=== PATIENT | female | born 1955 | race Caucasian/White ===

== ENCOUNTER → 2019-12-17 14:58 | Outpatient (BNVA) | payer MEDICARE, MEDICAID, SELFPAY | PROVIDERS: Family Provider Family Medicine; PCP Family Medicine; Visit Provider Internal Medicine Rheumatology | DX: M34.0 Progressive systemic sclerosis (principal); Z79.899 Other long term (current) drug therapy; B99.9 Unspecified infectious disease; A04.8 Other specified bacterial intestinal infections; M06.4 Inflammatory polyarthropathy; I27.20 Pulmonary hypertension, unspecified; R76.0 Raised antibody titer; J44.9 Chronic obstructive pulmonary disease, unspecified; F17.210 Nicotine dependence, cigarettes, uncomplicated; R19.7 Diarrhea, unspecified; Z79.52 Long term (current) use of systemic steroids; Z71.89 Other specified counseling | CPT/HCPCS: 36415; 80076; 82565; 85025; 85651; 86140; 99214 ==

== ENCOUNTER → 2019-12-17 16:39 | Outpatient (BNVA) | payer MEDICARE, MEDICAID, SELFPAY | PROVIDERS: Family Provider Family Medicine; PCP Family Medicine; Visit Provider Internal Medicine Rheumatology | DX: Z79.899 Other long term (current) drug therapy (principal); B99.9 Unspecified infectious disease; A04.8 Other specified bacterial intestinal infections; R19.7 Diarrhea, unspecified; M06.4 Inflammatory polyarthropathy; M34.0 Progressive systemic sclerosis; I27.20 Pulmonary hypertension, unspecified; R76.0 Raised antibody titer; Z71.89 Other specified counseling | CPT/HCPCS: 85025 ==

== ENCOUNTER 2020-02-13 15:14 | Outpatient (CLI) | payer MEDICARE, MEDICAID, SELFPAY ==
--- NOTE | 2020-02-13 15:21 | USCV_ITS ---
Kathy Ordonez Age: 64 Gender: F : 1955 Exam Date: 02/13/2020 15:45 Ordering Phys: Aby Miranda MD Technologist: Janey Cole Exam Location: [facility] [place] Indication: SWELLING HISTORY: Lower extremity pain. PROCEDURES: Venous duplex imaging was performed in bilateral lower extremities. The following venous structures were evaluated: common femoral vein, profunda vein, proximal portion of the greater saphenous vein, superficial femoral vein, and the popliteal vein. In addition, the posterior tibial and peroneal trunk were evaluated. Serial compression, augmentation maneuvers, and spectral Doppler flow evaluation were performed. FINDINGS: Normal 2-D Doppler and augmentation and compressibility throughout the lower extremity venous structures. Additional imaging through the proximal calf veins also reveals no thrombus. Limited evaluation of the greater saphenous vein is patent with no thrombus.. CONCLUSIONS No evidence of deep vein thrombosis in the above mentioned identifiable veins Dr Nicolette Moody MD [facility] (Electronically Signed) Final Date: 13 February 2020 17:41 S
== END 2020-02-13 15:15 | disposition home or self-care (01) ==
LOC: RAD 15:18
PROVIDERS: Family Provider Family Medicine; PCP Family Medicine; Visit Provider Family Medicine
DX: R60.0 Localized edema (principal)
CPT/HCPCS: 93970

== ENCOUNTER → 2020-03-05 10:18 | Outpatient (BNVA) | payer MEDICARE, MEDICAID, SELFPAY | PROVIDERS: Family Provider Family Medicine; PCP Family Medicine; Visit Provider Internal Medicine Rheumatology | DX: Z79.899 Other long term (current) drug therapy (principal) | CPT/HCPCS: 36415; 80076; 82565; 85025; 85651; 86140 ==

== ENCOUNTER → 2020-03-12 09:46 | Outpatient (BNVA) | payer MEDICARE, MEDICAID, SELFPAY | PROVIDERS: Family Provider Family Medicine; PCP Family Medicine; Visit Provider Internal Medicine Rheumatology | DX: M34.0 Progressive systemic sclerosis (principal); M06.4 Inflammatory polyarthropathy; M31.6 Other giant cell arteritis; I27.20 Pulmonary hypertension, unspecified; R76.0 Raised antibody titer; Z79.52 Long term (current) use of systemic steroids; F17.210 Nicotine dependence, cigarettes, uncomplicated; I73.00 Raynaud's syndrome without gangrene; Z79.899 Other long term (current) drug therapy; M79.7 Fibromyalgia | CPT/HCPCS: 99214 ==

== ENCOUNTER 2020-04-28 11:38 | Outpatient (CLI) | payer MEDICARE, MEDICAID, SELFPAY ==
--- NOTE | 2020-04-28 11:43 | USCV_ITS ---
Kathy Ordonez Age: 64 Gender: F : 1955 Exam Date: 04/28/2020 11:53 Ordering Phys: Aby Miranda MD Technologist: Exam Location: [facility] [place]_ Indication: PAD RIGHT LEFT Pressure (mmHg) Waveform Pressure (mmHg) Waveform 123.00 Above Knee 132.00 122.00 Below Knee 128.00 118.00 TAXATION ACCOUNTANT 119.00 117.00 DPA 123.00 1.02 Ankle/Brachial Index 1.07 Pre-Exercise Toe Pressure 98.00 77.00 0.67 Pre-Exercise Toe/Brachial Index 0.85 FINDINGS Normal resting ABIs bilaterally Slightly diminished resting TBI on the right side Normal resting TBI on the left side PVR waveforms showing loss of dicrotic notch bilaterally CONCLUSIONS 1. Features of mild peripheral artery disease on the right side 2. No significant arterial obstruction on the left side Dr Nicolette Moody MD [facility] (Electronically Signed) Final Date: 29 April 2020 19:06 S
== END 2020-04-28 11:39 | disposition home or self-care (01) ==
LOC: RAD 11:42
PROVIDERS: Family Provider Family Medicine; PCP Family Medicine; Visit Provider Family Medicine
DX: I73.9 Peripheral vascular disease, unspecified (principal); M79.605 Pain in left leg; M79.604 Pain in right leg
CPT/HCPCS: 93923

== ENCOUNTER 2020-05-21 09:33 | Outpatient (CLI) | payer MEDICARE, MEDICAID, SELFPAY ==
--- NOTE | 2020-05-21 09:30 | USCV_ITS ---
Kathy Ordonez Age: 64 Gender: F : 1955 Exam Date: 05/21/2020 09:35 Ordering Phys: Tony Rodriguez MD (Andy) ([email or web address]) Technologist: Anjana Quinteros [place] [facility] [place]: HISTORY: Lower extremity swelling. PROCEDURES: Bilateral duplex Venous Insufficiency study of the Deep and Superficial systems was carried out according to normal protocol with the patient in supine positon for deep system and dependent position for the superficial system. FINDINGS: There is no evidence of bilateral deep vein thrombosis. No evidence of superficial thrombosis in the bilateral saphenous system. Reflux is demonstrated in the deep venous system at the level of the RIGHT and LEFT popliteal veins. No venous reflux noted in the bilateral greater saphenous vein. No venous reflux noted in the RIGHT small saphenous vein. Venous reflux is demonstrated in the LEFT small saphenous vein with a spectral Doppler display of greater than 500 mlsec at the level of the proximal calf. CONCLUSIONS No evidence of DVT in the above-mentioned identifiable veins. Significant venous reflux of greater than 1000 ms were noted in the popliteal veins bilaterally. Significant venous reflux of greater than 500 (2800) ms were noted at the proximal segment of the small saphenous vein on the left side. The venous segment was found to be greater than 1 cm from the surface. The diameter of this venous segment was 0.26 cm. The venous dimensions, depth from the surface and reflux times are as mentioned above Dr Nicolette Moody MD [facility] (Electronically Signed) Final Date: 22 May 2020 14:41 S
== END 2020-05-21 09:34 | disposition home or self-care (01) ==
LOC: RAD 09:34
PROVIDERS: PCP Family Medicine; Visit Provider Thoracic Surgery (Cardiothoracic Vascular Surgery)
DX: M79.89 Other specified soft tissue disorders (principal)
CPT/HCPCS: 93970

== ENCOUNTER → 2020-06-16 09:54 | Outpatient (BNVA) | payer MEDICARE, MEDICAID, SELFPAY | PROVIDERS: PCP Nurse Practitioner Family; Visit Provider Internal Medicine | DX: Z11.59 Encounter for screening for other viral diseases (principal) | CPT/HCPCS: 87635 ==

== ENCOUNTER 2020-06-17 08:26 | Day surgery (SDC) | payer MEDICARE, MEDICAID, SELFPAY ==
[2020-06-17 08:42] VITALS: BMI 35.4
[2020-06-17 08:53] LABS: Glucose Point of Care 84 mg/dL (70-110)
--- NOTE | 2020-06-17 08:53 | ANES.PREANE2 ---
Pre-Anesthetic Assessment Pre-Anesthetic Assessment: Height/Weight: Height 1.6 m Weight 90.718 kg Preop Diagnosis: stenotis (esophageal) Proposed Procedure: Operation Date: 06/17/20 10:00 Proposed Procedures p EGD Dilation w Balloon 39286 R13.10(Not Applicable) - Luciano Santana MD Familial anesthetic complications: None Was Beta Lucy taken within 24 hours: N/A Last intake: Intake Last Liquid Date 06/16/20 Last Liquid Time 23:59 Last Solid Date 06/16/20 Last Solid Time 16:00 Social: Social History: No alcohol and No tobacco Exam: Pre-Anes Outpt Exam: alert, oriented x 3, clear to auscultation bilaterally and regular rate & rhythm Airway: Cervical ROM: WNL MP: 4 Dentition: Other (multiple missing teeth) Additional comments: small mouht opening Pulmonary: Pulmonary: COPD (2 l NC prn) and Sleep apnea (CPAP) Comments: pulm HTN CV/HEM: CV/HEM: HTN Metabolic: Metabolic: DM, Morbid obesity and Thyroid Musc/skel: Comments: scleroderma (affects throat, lungs, heart) Anesthetic Plan: ASA status: 3 Anesthesia: MAC Risk of > 500 ml blood loss (7ml/kg in children): No PFSH Anesthesia PFSH: Medical History COPD (chronic obstructive pulmonary disease) Diabetes mellitus Fibromyalgia GERD (gastroesophageal reflux disease) Hypothyroidism Pulmonary hypertension Scleroderma Systemic sclerosis with limited cutaneous involvement Surgical History H/O section H/O esophagogastroduodenoscopy History of hysterectomy Status post colonoscopy Family History Other Arthritis Diabetes Heart disease Denies family history of Rheumatoid arthritis Lupus Anesthesia complication Bleeding disorder Social History Smoking and tobacco status: former smoker Quit status (tobacco): has quit using tobacco Year quit tobacco: 2020 - 2PPD x 10 Years Alcohol intake: never Lives independently: Yes Household members: friend(s) Marital status: / Current occupational status: disabled History of recent travel: No Current gender identity: Female Data Anesthesia Cardiac Studies: No Data to Display
[2020-06-17] MEDS: sodium chloride 0.9% 1,000 ML 30 ML IV (09:00)
--- NOTE | 2020-06-17 09:18 | W.PM.OPSUD ---
Surgery/Procedure H&P Update DATE OF PROCEDURE: June 17, 2020 DATE H&P PERFORMED: 05/30/20 H&P UPDATE INFORMATION: I have reviewed H&P completed within last 30 days, I have examined patient prior to procedure and No changes to prior documentation PREOP DIAGNOSIS: stenotis (esophageal) PLANNED PROCEDURE: Operation Date: 06/17/20 10:00 Proposed Procedures p EGD Dilation w Balloon 29193 R13.10(Not Applicable) - Luciano Santana MD
--- NOTE | 2020-06-17 09:39 | SUR.OPER ---
0939 Balloon dilation with 10, 11, 12 and then 12, 13.5, and 15 mm dilator.
[2020-06-17 09:51] VITALS: BP 97/67; PULSE 71; RESP 16; TEMP 36.2; O2SAT 92
[2020-06-17 10:03] VITALS: BP 102/78; PULSE 75; RESP 16; O2SAT 94
--- NOTE | 2020-06-17 10:25 | ANE.PACU2 ---
Inpatient post-anesthesia follow up: Airway intact: Yes Vital signs: Temperature 97.1 F Pulse Rate 75 Respiratory Rate 16 Blood Pressure 102/78 Pulse Oximetry 94 Oxygen Delivery Me thod Nasal Cannula Oxygen Flow Rate 2.0 Fraction of Inspir ed Oxygen Hydration adequate: Yes Nausea and vomiting: No Pain level: 1 Mental status: Baseline
== END 2020-06-17 10:15 | disposition home or self-care (01) ==
PROVIDERS: PCP Nurse Practitioner Family; Visit Provider Surgery
DX: R13.10 Dysphagia, unspecified (principal); K21.0 Gastro-esophageal reflux disease with esophagitis; J44.9 Chronic obstructive pulmonary disease, unspecified; I27.20 Pulmonary hypertension, unspecified; G47.30 Sleep apnea, unspecified; I10 Essential (primary) hypertension; E11.9 Type 2 diabetes mellitus without complications; E66.01 Morbid (severe) obesity due to excess calories; M79.7 Fibromyalgia; E03.9 Hypothyroidism, unspecified; M34.89 Other systemic sclerosis; Z87.891 Personal history of nicotine dependence
CPT/HCPCS: 12345; 36416; 43249; 82962; 88305; J2704; J7030

== ENCOUNTER 2020-06-18 13:48 | Outpatient (CLI) | payer MEDICARE, MEDICAID, SELFPAY ==
--- NOTE | 2020-06-18 14:43 | PFTS_ITS ---
Date of Study:06/18/20 Date of Dictation: MECHANICS: Forced vital capacity (FVC) is reduced. Forced expiratory volume in one second (FEV1) is reduced. FEV1/FVC is normal. FLOW VOLUME LOOP: Narrow with mild scooping. LUNG VOLUMES: Total lung capacity (TLC) is normal. Residual volume (RV) is normal. DIFFUSING CAPACITY FOR CARBON MONOXIDE: Mild reduced. INTERPRETATION: The pulmonary function tests are consistent with nonspecific ventilatory limitation. The spirometry is consistent with moderate restriction however the total lung capacity is normal. This could represent a combined obstructive and restrictive defect. Lung volumes are normal. Gas exchange (DLCO) is mildly reduced. MTDD
[2020-06-18 14:47] VITALS: BP 98/63
== END 2020-06-18 13:49 | disposition home or self-care (01) ==
LOC: RT 13:49
PROVIDERS: PCP Nurse Practitioner Family; Visit Provider Internal Medicine Pulmonary Disease
DX: I27.20 Pulmonary hypertension, unspecified (principal); J44.9 Chronic obstructive pulmonary disease, unspecified; M34.9 Systemic sclerosis, unspecified
CPT/HCPCS: 94060; 94726; 94729; 94770; J7611

== ENCOUNTER 2020-07-08 09:46 | Outpatient (CLI) | payer MEDICARE, MEDICAID, SELFPAY ==
--- NOTE | 2020-07-08 09:50 | XR_ITS ---
WS: [id number] EXAM: Chest: PA and lateral DATE OF EXAMINATION: 07/08/2020, 1045 hours COMPARISON: Chest x-ray from 05/19/2017 HISTORY: Patient is 64 years old with interstitial lung disease. FINDINGS: The heart size is considered slightly enlarged. The mediastinal contours are normal. There is marke d interval increase in interstitial infiltrate/interstitial edema since the prior examination. Katiuska B lines are demonstrated bilaterally. No area of consolidation is seen. No effusion, or pneumothorax . Bone density is decreased. XR/XR chest 2V* [id number] IMPRESSION: Marked interval development of interstitial infiltrate and/or interstitial ginger a. With the history of interstitial lung disease most likely represents fibrosi s. Slight cardiomegaly.
--- NOTE | 2020-07-08 10:00 | NM_ITS ---
WS: [id number] NUCLEAR MEDICINE VENTILATION/PERFUSION LUNG SCAN HISTORY: Pulmonary hypertension. Sclerosis systemic. COMPARISON: 07/08/2020 TECHNIQUE: Ventilation: 32.5 mCi of Technetium 99 DTPA aerosol inhaled. Perfusion: 5.0 mCi of technetium 99m MAA IV. Mild deposition of central isotope on the ventilatory portion. Otherwise mild heterogeneity of the ve ntilation. Much better perfusion bilaterally. Perfusion examination is essentially normal. No wedge-s haped defects. No asymmetry. NM/NM pul vent and perfus* [id number] IMPRESSION: Low probability PE. Perfusion examination is essentially normal.
== END 2020-07-08 09:47 | disposition home or self-care (01) ==
LOC: NM 09:49
PROVIDERS: PCP Nurse Practitioner Family; Visit Provider Internal Medicine Pulmonary Disease
DX: J84.89 Other specified interstitial pulmonary diseases (principal); M35.9 Systemic involvement of connective tissue, unspecified; G47.33 Obstructive sleep apnea (adult) (pediatric); Z99.89 Dependence on other enabling machines and devices; M34.9 Systemic sclerosis, unspecified; I27.20 Pulmonary hypertension, unspecified; J44.9 Chronic obstructive pulmonary disease, unspecified
CPT/HCPCS: 71046; 78014; A9540; A9567

== ENCOUNTER → 2020-07-16 09:54 | Outpatient (BNVA) | payer MEDICARE, MEDICAID, SELFPAY | PROVIDERS: PCP Nurse Practitioner Family; Visit Provider Internal Medicine Rheumatology | DX: M34.0 Progressive systemic sclerosis (principal); J84.89 Other specified interstitial pulmonary diseases; M35.9 Systemic involvement of connective tissue, unspecified; Z87.891 Personal history of nicotine dependence; Z79.899 Other long term (current) drug therapy; I27.20 Pulmonary hypertension, unspecified; R76.0 Raised antibody titer; M06.4 Inflammatory polyarthropathy; M31.6 Other giant cell arteritis; K52.9 Noninfective gastroenteritis and colitis, unspecified | CPT/HCPCS: 99215 ==

== ENCOUNTER 2020-08-19 10:49 | Outpatient (CLI) | payer MEDICARE, MEDICAID, SELFPAY ==
--- NOTE | 2020-08-19 11:00 | CT_ITS ---
WS: [id number] CT CHEST high resolution. HISTORY: to assess progression on ILD in systemic sclerosis patient TECHNIQUE: Contiguous 5 mm axial imaging performed on the thorax. High resolution inspiration and exp iration supine imaging and prone inspiration sequences submitted. All CT scans at [facility] use at least one of these dose optimization techniques: automated exposure control; mA and/or kV a djustment per patient size (includes targeted exams where dose is matched to clinical indication); or iterative reconstruction. CONTRAST: None DLP: 290.94 mGy.cm COMPARISON: 09/06/2019 Lungs and central airway: Mild persistent groundglass attenuation. With expiration the groundglass op acifications become more prominent. There is no evidence for air trapping. There is no significant re ticular opacifications or honeycombing. There is mild thickening and nodularity along the pleural and subpleural surfaces. Greatest involving the LEFT mid fissure which has increased. No progression or new honeycombing. Mild thickening of the central bronchovascular structures. There is some very mild subpleural thickening and nodularity. Pleura: No effusions. Heart and pericardium: Heart is slightly enlarged. No pericardial thickening. Mediastinum and morena: Minimal increase in size of the pulmonary artery from 3.5 to 3.8 cm in diameter . The RIGHT and LEFT main pulmonary arteries are also prominent. Dilated debris-filled esophagus at t his again identified most significant below the gin. Lymphadenopathy would be difficult to exclude on this examination. For further evaluation of adenopathy CT with contrast should be performed. Dila mar pulmonary arteries making evaluation for lymph nodes difficult. Vessels: Normal size aorta with mild atherosclerosis. Chest wall and lower neck: No soft tissue masses. Upper abdomen: Negative. Osseous structures: No destructive process. CT/CT chest wo con [id number] IMPRESSION: 1. Mild progression of the minimal groundglass attenuation in the small bowel pleural and subpleural nodules as described above. Most significant changes dustin ng the LEFT major fissure. 2. No honeycombing. Mild persistent diffuse groundglass opacifications. 3. Continued esophageal dilatation. 4. Mild progression of the pulmonary hypertension and pulmonary artery enlarge ment.
== END 2020-08-19 10:50 | disposition home or self-care (01) ==
LOC: RAD 10:50
PROVIDERS: PCP Nurse Practitioner Family; Visit Provider Internal Medicine Pulmonary Disease
DX: J84.89 Other specified interstitial pulmonary diseases (principal); M35.9 Systemic involvement of connective tissue, unspecified; M34.0 Progressive systemic sclerosis; K22.8 Other specified diseases of esophagus; I27.20 Pulmonary hypertension, unspecified
CPT/HCPCS: 71250

== ENCOUNTER 2020-09-11 11:35 | Outpatient (CLI) | payer MEDICARE, MEDICAID, SELFPAY ==
--- NOTE | 2020-09-11 11:42 | XR_ITS ---
WS: [id number] CHEST 2 VIEWS HISTORY: shortness of breath COMPARISON: 07/08/2020 Lungs: Mild pulmonary hyperinflation. Mild thickening of the interstitium and mild pulmonary congesti on. No significant change since the prior study. Cardiac size: Moderately enlarged cardiac silhouette. Mediastinum/Aorta: Normal mediastinum. Bones: Normal. XR/XR chest 2V* [id number] IMPRESSION: 1. Increased interstitial thickening is likely due to mild pulmonary edema. Rios perimposed interstitial pneumonitis not excluded. 2. Moderate cardiomegaly.
== END 2020-09-11 11:36 | disposition home or self-care (01) ==
LOC: RAD 11:40
PROVIDERS: PCP Nurse Practitioner Family; Visit Provider Internal Medicine Pulmonary Disease
DX: R06.02 Shortness of breath (principal); I51.7 Cardiomegaly
CPT/HCPCS: 71046

== ENCOUNTER 2020-11-05 10:33 | Outpatient (CLI) | payer MEDICARE, MEDICAID, SELFPAY ==
--- NOTE | 2020-11-05 13:30 | USCV_ITS ---
Kathy Ordonez Age: 65 Gender: F : 1955 Exam Date: 11/05/2020 11:00 Ordering Phys: Trevor Mora MD Technologist: Anjana Quinteros Exam Location: [facility] – [place] Indication: assess rv function BP: 106 / 62 HR: 96 Rhythm: Sinus Technical Quality: Adequate MEASUREMENTS (Male / Female) Normal Values 2D ECHO LV Diastolic Diameter PLAX 4.4 cm 4.2 - 5.9 / 3.9 - 5.3 cm LV Systolic Diameter PLAX 4.1 cm IVS Diastolic Thickness 1.2 cm 0.6 - 1.0 / 0.6 - 0.9 cm IVS Systolic Thickness 1.5 cm LVPW Diastolic Thickness 1.3 cm 0.6 - 1.0 / 0.6 - 0.9 cm LVPW Systolic Thickness 1.5 cm RV Chamber Size 3.8 cm LVOT Diameter 2.0 cm LV Ejection Fraction 2D Teich 18.0 % LV Ejection Fraction MOD 2C 55.4 % LV Ejection Fraction 2C AL 59.0 % LA Diameter 3.6 cm LA Width 3.1 cm LA Height 4.0 cm RA Width 2.5 cm RA Height 3.9 cm Aorta at Sinotubular Diameter 2.4 cm M-MODE LV Diastolic Diameter MM 4.1 cm 4.2 - 5.9 / 3.9 - 5.3 cm LV Systolic Diameter MM 2.3 cm LV Ejection Fraction MM Teich 75.4 % IVS Diastolic Thickness MM 1.4 cm 0.6 - 1.0 / 0.6 - 0.9 cm IVS Systolic Thickness MM 1.4 cm LVPW Diastolic Thickness MM 1.3 cm 0.6 - 1.0 / 0.6 - 0.9 cm LVPW Systolic Thickness MM 1.8 cm Aortic Annulus Diameter 2.8 cm LA Ao Ratio MM 1.4 MV E Point Septal Separation 0.6 cm DOPPLER AV Peak Velocity 136.0 cm/s LVOT Peak Velocity 107.0 cm/s AV Area Cont Eq vti 2.5 cm squared AV Area Cont Eq pk 2.4 cm squared MV Area PHT 3.7 cm squared Mitral E to A Ratio 0.5 MV E' Velocity 48.0 cm/s Mitral E to MV E' Ratio 6.7 Mitral E to LV E' Lateral Ratio 6.9 Mitral E to LV E' Septal Ratio 6.5 TR Peak Velocity 339.5 cm/s TR Peak Gradient 46.1 mmHg TR Mean Velocity 238.2 cm/s TR Mean Gradient 27.9 mmHg TR Velocity Time Integral 102.2 cm Right Atrial Pressure 3.0 mmHg Pulmonary Artery Systolic Pressu 49.1 mmHg PV Peak Velocity 61.0 cm/s RV Acceleration Time 0.1 s RV Ejection Time 0.3 s RV AcT/ET 0.3 FINDINGS Left Ventricle Mildly increased left ventricular cavity size. Normal left ventricular systolic function. Left ventricular ejection fraction is estimated at 55 %. Grade I/IV diastolic dysfunction (abnormal relaxation filling pattern), normal to mildly elevated filling pressures. Right Ventricle Moderately increased right ventricular size. Moderate pulmonary hypertension, RVSP 49.1 mmHg. Right Atrium The right atrium is normal in size. Left Atrium The left atrium is normal in size. Mitral Valve Mildly thickened mitral valve. No mitral valve stenosis. Mild mitral valve regurgitation. Aortic Valve Mild aortic valve calcification. No aortic valve stenosis. No aortic valve regurgitation. Tricuspid Valve Mild tricuspid valve regurgitation. Pulmonic Valve Structurally normal pulmonic valve without significant stenosis. There is no pulmonic regurgitation. Pericardium Normal pericardium without effusion. Aorta Normal ascending aorta dimension. CONCLUSIONS 1-Mildly increased left ventricular cavity size. Normal left ventricular systolic function. Left ventricular ejection fraction is estimated at 55 %. Grade I/IV diastolic dysfunction (abnormal relaxation filling pattern), normal to mildly elevated filling pressures. 2-Moderately increased right ventricular size. Moderate pulmonary hypertension, RVSP 49.1 mmHg. 3-Mildly thickened mitral valve. No mitral valve stenosis. Mild mitral valve regurgitation. 4-Mild aortic valve calcification. No aortic valve stenosis. No aortic valve regurgitation. 5-Mild tricuspid valve regurgitation. 6-There is no pericardial effusion. 7-When compared to the prior echocardiogram dated June 11, 2019 right ventricle ejection fraction has moderately reduced while right ventricle size has moderately increased now. Joshua Rendon MD (Electronically Signed) Final Date: 05 November 2020 19:15 S
== END 2020-11-05 10:34 | disposition home or self-care (01) ==
LOC: RAD 10:36
PROVIDERS: PCP Nurse Practitioner Family; Visit Provider Internal Medicine Pulmonary Disease
DX: J84.89 Other specified interstitial pulmonary diseases (principal); I27.20 Pulmonary hypertension, unspecified; I08.3 Combined rheumatic disorders of mitral, aortic and tricuspid valves
CPT/HCPCS: 93306

== ENCOUNTER → 2021-04-14 13:53 | Outpatient (BNVA) | payer MEDICARE, MEDICAID, SELFPAY | PROVIDERS: PCP Nurse Practitioner Family; Visit Provider Internal Medicine Rheumatology | DX: M34.0 Progressive systemic sclerosis (principal); Z79.899 Other long term (current) drug therapy; J84.89 Other specified interstitial pulmonary diseases; I27.20 Pulmonary hypertension, unspecified; R76.0 Raised antibody titer; M79.7 Fibromyalgia; M48.061 Spinal stenosis, lumbar region without neurogenic claudication; M51.16 Intervertebral disc disorders with radiculopathy, lumbar region; Z87.891 Personal history of nicotine dependence | CPT/HCPCS: 99214 ==

== ENCOUNTER 2021-07-24 11:45 | Outpatient (CLI) | payer MEDICARE, MEDICAID, SELFPAY ==
--- NOTE | 2021-07-24 11:55 | MM_ITS ---
WS: [id number] BILATERAL SCREENING DIGITAL MAMMOGRAM WITH CAD HISTORY: SCREENING COMPARISON: 06/21/2019 and 06/19/2017 Bilateral CC and MLO views submitted. Computer aided detection analyzed. Breast composition: There are scattered areas of fibroglandular density. No suspicious masses, microc alcifications or architectural distortion. MM/[place] [id number] IMPRESSION: BI-RADS: 1-Negative FOLLOW UP: 1 Year Follow-up
== END 2021-07-24 11:46 | disposition home or self-care (01) ==
LOC: RADSHAW 11:48
PROVIDERS: PCP Nurse Practitioner Family; Visit Provider Nurse Practitioner Family
DX: Z12.31 Encounter for screening mammogram for malignant neoplasm of breast (principal)
CPT/HCPCS: 77067

== ENCOUNTER → 2021-07-29 13:27 | Outpatient (BNVA) | payer MEDICARE, MEDICAID, SELFPAY | PROVIDERS: PCP Nurse Practitioner Family; Visit Provider Internal Medicine Rheumatology | DX: M34.0 Progressive systemic sclerosis (principal); I27.20 Pulmonary hypertension, unspecified; Z79.899 Other long term (current) drug therapy; Z79.52 Long term (current) use of systemic steroids; J84.89 Other specified interstitial pulmonary diseases; M35.9 Systemic involvement of connective tissue, unspecified; R76.0 Raised antibody titer; M48.061 Spinal stenosis, lumbar region without neurogenic claudication; M54.32 Sciatica, left side; M79.7 Fibromyalgia; F41.8 Other specified anxiety disorders; Z71.89 Other specified counseling; Z87.891 Personal history of nicotine dependence | CPT/HCPCS: 99214 ==

== ENCOUNTER 2021-08-31 12:54 | Outpatient (CLI) | payer MEDICARE, MEDICAID, SELFPAY ==
--- NOTE | 2021-08-31 11:45 | CT_ITS ---
WS: [id number] CT CHEST HIGH-RESOLUTION TECHNIQUE: Noncontrast CT chest. High-resolution inspiratory expiratory and prone imaging CLINICAL INFORMATION: J84.89 - Other specified interstitial pulmonary diseases COMPARISON: CT chest August 19, 2020 and DLP: 1861.[address] scans at [facility] use at least one of these dose optimization techniques: automated e xposure control; mA and/or kV adjustment per patient size (includes targeted exams where dose is matc hed to clinical indication); or iterative reconstruction. FINDINGS: Previously described groundglass opacities essentially resolved since the prior examination s. Small amount of atelectasis in the right lower lobe. Stable bronchovascular thickening. No subpleu ral honeycombing. No significant air trapping on expiration imaging. No significant reticular opaciti es or subpleural honeycombing. Stable mild pleural and subpleural thickening and nodularity more prom inent involving the left fissure unchanged. No mediastinal or hilar lymphadenopathy. Cardiomegaly. Coronary calcification. Stable thoracic esophageal dilatation. Adrenal glands are wolf l. Fatty atrophy of the pancreas. Cardiomegaly. Coronary calcification. No axillary lymphadenopathy. Hypertrophic changes thoracic spine. Stable central pulmonary arterial enlargement can be seen with p ulmonary arterial hypertension. CT/CT chest wo con [id number] IMPRESSION: 1. Previously seen described groundglass opacities have resolved. 2. No reticular opacities or subpleural honeycombing. 3. Small amount of pleural and subpleural nodularity and thickening is stable compared to previous most prominent along left fissure. 4. Stable persistent thoracic esophageal dilatation 5. Stable pulmonary arterial enlargement which can be seen with pulmonary augustina rial hypertension.
== END 2021-08-31 12:55 | disposition home or self-care (01) ==
PROVIDERS: PCP Nurse Practitioner Family; Visit Provider Internal Medicine Pulmonary Disease
DX: J84.89 Other specified interstitial pulmonary diseases (principal); M35.9 Systemic involvement of connective tissue, unspecified
CPT/HCPCS: 71250

== ENCOUNTER → 2021-09-07 12:35 | Outpatient (BNVA) | payer MEDICARE, MEDICAID, SELFPAY | PROVIDERS: PCP Nurse Practitioner Family; Visit Provider Internal Medicine Pulmonary Disease | DX: Z20.822 Contact with and (suspected) exposure to COVID-19 (principal); J44.9 Chronic obstructive pulmonary disease, unspecified; J84.89 Other specified interstitial pulmonary diseases; M35.9 Systemic involvement of connective tissue, unspecified | CPT/HCPCS: 87635 ==

== ENCOUNTER 2021-09-11 12:44 | Outpatient (CLI) | payer MEDICARE, MEDICAID, SELFPAY ==
--- NOTE | 2021-09-11 13:30 | PFTS_ITS ---
Date of Study:09/11/21 Date of Dictation: MECHANICS: Forced vital capacity (FVC) is reduced. Forced expiratory volume in one second (FEV1) is reduced. FEV1/FVC is normal. FLOW VOLUME LOOP: Mild scooping. LUNG VOLUMES: Total lung capacity (TLC) is normal. Residual volume (RV) is increased. DIFFUSING CAPACITY FOR CARBON MONOXIDE: Moderately reduced. INTERPRETATION: The postbronchodilator spirometry is consistent with moderate restriction. There is no significant postbronchodilator response. Lung volumes are consistent with air trapping. The constellation of spirometry and lung volume measurement is consistent with nonspecific ventilatory limitation. The patient likely has both obstructive and restrictive ventilatory defects. Gas exchange (DLCO) is moderately reduced. MTDD
== END 2021-09-11 12:45 | disposition home or self-care (01) ==
LOC: RT 12:45
PROVIDERS: PCP Nurse Practitioner Family; Visit Provider Internal Medicine Pulmonary Disease
DX: Z87.891 Personal history of nicotine dependence (principal); J44.9 Chronic obstructive pulmonary disease, unspecified
CPT/HCPCS: 94060; 94618; 94726; 94729; J7611

== ENCOUNTER 2021-11-17 11:14 | Inpatient (IN) | payer MEDICARE, MEDICAID, SELFPAY ==
[2021-11-17] VITALS (10 sets, daily range): BP systolic 88–99; BP diastolic 53–55; PULSE 71–121; RESP 16–26; TEMP 36.3–36.8; O2SAT 91–97; BMI 30.9
--- NOTE | 2021-11-17 11:23 | XR_ITS ---
WS: [id number] Portable AP semierect chest, 11/17/2021 Clinical Data: hypoxia, resp distress Comparison: Two-view chest, 09/11/2020. Findings: Bibasilar pulmonary opacities are present consistent with acute pneumonia. No nodules, mass es or effusions are seen. The heart is normal. The pulmonary vascularity is not remarkable. No pneumo thorax is seen. The aortic arch shows mild tortuosity. XR/XR chest 1V portable [id number] Impression: 1. Bibasilar pulmonary opacities which could represent acute pneumonia. 2. Atherosclerosis.
--- NOTE | 2021-11-17 11:24 | ECG_ITS ---
[facility] Test Date: 2021-11-17 Pat Name: Kathy Ordonez Department: Room: 256 Gender: Female Education Trainer: : 1955 Requested By: Narinder Villa Order Number: [id number] Esperanza MD: Jena Boykin M.D. Measurements Intervals [place] Rate: 123 P: 74 IN: 177 QRS: 139 QRSD: 103 T: 31 QT: 360 QTc: 517 Interpretive Statements SINUS TACHYCARDIA WITH FREQUENT SUPRAVENTRICULAR PREMATURE COMPLEXES INCOMPLETE RIGHT BUNDLE BRANCH BLOCK RIGHT VENTRICULAR HYPERTROPHY MINIMAL ST DEPRESSION [0.025+ mV ST DEPRESSION] Compared to ECG 11/30/2016 18:18:33 Incomplete right bundle-branch block now present Right ventricular hypertrophy now present Atrial abnormality now present ST (T wave) deviation now present Sinus rhythm no longer present Sinus arrhythmia no longer present Myocardial infarct finding no longer present Electronically Signed On 11-17-2021 21:46:52 HOOP COILER by Jena Boykin M.D. [id number]
--- NOTE | 2021-11-17 11:25 | ED_ITS ---
HPI - SOB/Dyspnea General: Chief Complaint: COVID symptoms Stated Complaint: POST COVID, RESP DISTRESS Time Seen by Provider: 11/17/21 11:23 History of Present Illness: HPI Narrative: Ms. Ordonez is a 71-year-old lady with significant past medical history of p ulmonary hypertension, systemic sclerosis, COPD with chronic hypoxic respiratory failure, history of tobaccoism who presents to the emergency department due to shortness of breath and respiratory distress. Patient apparently had Covid and quarantine ended 3 days ago. She has been requiring more oxygen than baseline including using her CPAP, which she previously only wore at night, all the time. Over the past 2 days she has been lethargic, not got out of bed, and had decreased p.o. intake. This morning EMS was called and found the patient to be hypoxemic on room air in the mid 70s. She was altered and had cool extremities with pallor and bluing of the fingernail beds. She would not follow commands. They placed the patient on BiPAP, 1 L fluid, and gave Solu-Medrol. The patient's mental status is improved with BiPAP and improved oxygenation though the patient still remains hypoxemic. History is otherwise limited by acuity of condition. Given BiPAP the patient has difficulty speaking however she does mentate and follow commands at this point. Course of symptoms have been wors ening. Severe in intensity. No other specific changes in health, exacerbating, relieving factors identified. Pertinent past history: COPD and other Onset (ago): day(s) Context: recent illness Timing: constant and progressively worsening Severity: severe Exacerbating factors: exertion Relieving factors: oxygen (Previously, now has not) Known history of: COPD and other Associated symptoms: Reports no associated symptoms Treatment prior to arrival: oxygen, NIPPV and other Review of Systems General: Reports: ROS unobtainable due to medical condition PFS ED PFS: Medical History (Updated 11/17/21 @ 15:13 by Rickey Cuellar MD) Chronic diarrhea COPD (chronic obstructive pulmonary disease) Diabetes mellitus Fibromyalgia GERD (gastroesophageal reflux disease) Hypothyroidism Pulmonary hypertension Scleroderma Systemic sclerosis with limited cutaneous involvement Surgical History H/O section H/O esophagogastroduodenoscopy (~06/17/20) With balloon dilation History of hysterectomy Status post colonoscopy Family History Other Arthritis Diabetes Heart disease Denies family history of Rheumatoid arthritis Lupus Anesthesia complication Bleeding disorder Social History Quit status (tobacco): has quit using tobacco Year quit tobacco: 2019 Former quit date comment: Hx of 2PPD x 10 Years Second hand smoke exposure: No Smoking risk assessment/counseling performed?: No Alcohol intake: never Counseling given: No Counseling given: No Lives independently: Yes Household members: friend(s) Marital status: / Current occupational status: disabled Pets and animals: Yes History of recent travel: No Current gender identity: Female Physical Exam Const: COMMON NORMALS: alert GENERAL APPEARANCE: cooperative and ill appearing ORIENTATION/CONSCIOUSNESS: Yes awake HENMT: COMMON NORMALS: normocephalic and atraumatic HEAD & SCALP: normocephalic and atraumatic THROAT: posterior oropharynx normal (Dry mucous membranes) Eye: COMMON NORMALS: conjunctivae normal CONJUNCTIVA: Yes conjunctivae normal SCLERA: sclerae normal Neck/C-Spine: COMMON NORMALS: supple GENERAL: Yes trachea midline Resp: EFFORT & INSPECTION: Yes tachypneic and Yes respiratory distress AUSCULTATION: diminished lung sounds bilateral and diffuse Cardio: COMMON NORMALS: regular rate and regular rhythm RATE: regular rate RHYTHM: regular rhythm GI: COMMON NORMALS: Soft to palpation PALPATION: Yes Soft to palpation and No Tenderness to palpation present (GI) PERCUSSION: normal to percussion Extremity: NARRATIVE EXTREMITY EXAM: No significant peripheral edema GENERAL: Yes normal exam except as noted and No edema Neuro: COMMON NORMALS: moves all extremities SENSORIUM/ORIENTATION: Yes alert and No Orientation impaired Psych: COMMON NORMALS: mental status grossly normal and Normal thought process present THOUGHT PROCESS: Normal thought process present Course ED course: - Patient was seen and evaluated by me at bedside - Patient placed on cardiac monitors, IV access obtained - Initial evaluation notable for ill appearance, prehospital BiPAP in place. Respiratory distress. nonfocal neurologic exam with some alteration in mental status - Antibiotics given, RT treatment for BiPAP and DuoNeb. - Labs notable for mild leukocytosis, likely hemoconcentration. Metabolic panel with evidence of intravascular dehydration, sodium 129, chloride 94, mild decrease in bicarb. Renal function is preserved. Initial troponin 33 with pending 2-hour troponin at time of admission. BNP mildly elevated, CRP elevated with negative procalcitonin. - Imaging notable for bibasilar opacities concerning for pneumonia. Antibiotics were ordered after review of x-ray prior to laboratory return. CT head pending. - Upon serial reexamination after treatment the patient was improved with continued improvement in mental status - Based on patient history, evaluation, labs, and imaging as interpreted the most likely cause of the patient's condition is pneumonia with acute on chronic hypoxic respiratory failure leading to mental status change - The results of ED evaluation were discussed with the patient including plan for admission due to requirement for level of care not available if discharged to prevent significant worsening/deterioration. - Admitting service was contacted and Dr Cuellar with hospitalist agreed to admit the patient. After discussion with Dr. Cuellar I will order a CTA for evaluation of pulmonary embolism as the patient is reportedly out of quarantine. For Covid and therefore illness was sometime ago. - Patient was admitted without further deterioration or significant events. Note: Click bubbles or prepopulated kelly in note writing are used for assistance with data collection and billing and are inherently more limited than narrative and other text portions of this note. Please use narrative for additional clinical history and defer to narrative/free test for any case of contradictory information. If information appears in only free text or click bubble it should be considered present or absent as reported. Please contact note com writer for clarifications of clinical information or contradictory information. MDM is a brief summary, contradictory or erroneous seeming information should be clarified and full note should be reviewed. Vital Signs: Vital signs: Vital Signs Temperature 96.9 F L 11/19/21 20:00 Pulse Rate 92 11/20/21 09:35 Respiratory Rate 18 11/20/21 09:30 Blood Pressure 103/67 11/20/21 07:30 Pulse Oximetry 80 L 11/20/21 09:31 MDM - SOB/Dyspnea MDM Narrative Medical decision making narrative: 66-year-old lady with history of interstitial lung disease, pulmonary hypertension presenting with respiratory distress. Patient placed on BiPAP. Patient required BiPAP throughout stay but did have some improvement in overall clinical condition with treatment. Patient admitted for further management given severity of respiratory distress and requirement for BiPAP. Medical Records Attestation: I reviewed the patient's medical records. Lab Data Attestation: I reviewed the patient's lab results. Result diagrams: 11/19/21 05:54 11/19/21 10:32 Labs: Radiology Impressions Chest X-Ray 11/17/21 11:23 Impression: 1. Bibasilar pulmonary opacities which could represent acute pneumonia. 2. Atherosclerosis. Head CT 11/17/21 12:19 IMPRESSION: 1. No acute intracranial hemorrhage or edema. 2. Mild atrophy and chronic ischemic changes. New since 11/10/2012. 3. RIGHT frontal lobe calcifications are stable. 4. Air-fluid levels in the RIGHT maxillary and sphenoid sinuses bilaterally. Chest CTA 11/17/21 14:24 IMPRESSION: 1. No central pulmonary embolism through the segmental branches. Highly likely there may be tiny filling defects in the subsegmental branches in the lower lung kelly. 2. Marked pulmonary artery enlargement with RIGHT heart strain. 3. Moderate opacification and groundglass attenuation from Covid 19. These findings are new since 08/31/2021. 4. Reactive mediastinal and hilar adenopathy. 5. Enlarged dilated fluid-filled esophagus with moderate size hiatal hernia. Laboratory Results WBC 10.6 10^3/uL (4.0-10.0) H 11/17/21 12:25 RBC 5.63 10^6/uL (4.1-5.3) H 11/17/21 12:25 Hgb 15.2 g/dL (11.5-15.3) 11/17/21 12:25 Hct 48.0 % (37.0-47.0) H 11/17/21 12:25 MCV 85.3 fl (81-99) 11/17/21 12:25 MCH 27.0 pg (28.0-34.0) L 11/17/21 12:25 MCHC 31.7 g/dL (30.0-36.0) 11/17/21 12:25 RDW 15.2 % (12.1-15.1) H 11/17/21 12:25 Plt Count 139 10^3/cmm (130-400) 11/17/21 12:25 MPV 10.5 fL (7.4-10.4) H 11/17/21 12:25 Neut % (Auto) 94.1 % 11/17/21 12:25 Lymph % (Auto) 3.5 % 11/17/21 12:25 [place] % (Auto) 1.5 % 11/17/21 12:25 Eos % (Auto) 0.0 % 11/17/21 12:25 Baso % (Auto) 0.2 % 11/17/21 12:25 Neut # (Auto) 10.02 10^3/uL (1.8-7.7) H 11/17/21 12:25 Lymph # (Auto) 0.4 10^3/uL (0.8-4.8) L 11/17/21 12:25 [place] # (Auto) 0.2 10^3/uL (0.2-0.9) 11/17/21 12:25 Eos # (Auto) 0.0 10^3/uL (0.0-0.8) 11/17/21 12:25 Baso # (Auto) 0.0 10^3/uL (0.0-0.1) 11/17/21 12:25 Nucleated RBC % (auto) 0 % 11/17/21 12:25 Nucleated RBCs # 0.0 /100WBC 11/17/21 12:25 Specimen Type Arterial 11/17/21 11:48 Sample Site Radial, right 11/17/21 11:48 ABG pH 7.53 (7.35-7.45) H 11/17/21 11:48 ABG pCO2 29.6 mmHg (35-45) L 11/17/21 11:48 ABG pO2 67.8 mmHg (80.0-100.0) L 11/17/21 11:48 ABG HCO3 24.4 mmol/L (22-26) 11/17/21 11:48 ABG Base Excess 2.5 mmol/L (-2.0-2.0) H 11/17/21 11:48 Evangelist Test Pos 11/17/21 11:48 Hematocrit 43.7 % (37-47) 11/17/21 11:48 O2 Delivery Device Bipap 11/17/21 11:48 FiO2 50.0 % 11/17/21 11:48 Sheet Metal Supervisor ID Abdi 11/17/21 11:48 Sodium 129 mmol/L (136-145) L 11/17/21 13:07 Potassium 3.9 mmol/L (3.5-5.1) 11/17/21 13:07 Chloride 94 mmol/L (98-107) L 11/17/21 13:07 Carbon Dioxide 21 mmol/L (22-29) L 11/17/21 13:07 Anion Gap 17.9 (5-19) 11/17/21 13:07 BUN 18 mg/dL (8-23) 11/17/21 13:07 Creatinine 0.6 mg/dL (0.5-0.9) 11/17/21 13:07 GFR Calculation 100.6 mL/min (90-130) 11/17/21 13:07 Glucose 98 mg/dL (65-115) 11/17/21 13:07 Calculated Osmolality 270 mOsm/kg (285-295) L 11/17/21 13:07 Lactic Acid 1.4 mmol/L (0.5-2.2) 11/17/21 13:07 Calcium 7.2 mg/dL (8.5-10.5) L 11/17/21 13:07 Total Bilirubin 0.8 mg/dL (0.15-1.2) 11/17/21 13:07 AST 93 U/L (0-32) H 11/17/21 13:07 ALT 30 U/L (0-33) 11/17/21 13:07 Alkaline Phosphatase 62 IU/L (35-105) 11/17/21 13:07 Troponin T Baseline 33 ng/L (0-10) H 11/17/21 13:07 Troponin T 120 Minute 31.00 ng/L (0-10) H 11/17/21 14:24 Delta Troponin T -2.00 ABS# (0-10) L 11/17/21 14:24 C-Reactive Protein 99.7 mg/L (0.0-4.9) H 11/17/21 13:07 NT-Pro-B Natriuret Pep 4229 pg/mL (0-125) H 11/17/21 13:07 Total Protein 5.1 g/dL (6.6-8.7) L 11/17/21 13:07 Albumin 2.8 g/dL (3.5-5.2) L 11/17/21 13:07 Globulin 2.3 g/dL (1.3-4.6) 11/17/21 13:07 Procalcitonin 0.12 ng/mL (0-0.5) 11/17/21 13:07 Influenza Type A Ag Negative (Negative) 11/17/21 11:49 Influenza Type B Ag Negative (Negative) 11/17/21 11:49 EKG Data EKG 1: Attestation: I personally reviewed and interpreted this EKG as follows: EKG Interpretation Date: 11/17/21 EKG interpretation time: 12:05 Interpretation: Twelve-lead EKG showed an irregular rhythm at a rate of 123. CA interval 177, QRS duration 103, QTc 517 Right axis deviation. Interpretation: Sinus rhythm. Tachycardia. Ectopic beats. Critical Care Time Critical Care Time: Critical Care Time: Yes Total Critical Care Time: 35 Attestation: Due to a high probability of clinically significant, possibly life threatening deterioration, the patient required my highest level of attention and preparedness to intervene emergently and I personally spent this critical care time directly and personally managing the patient. This critical care time included obtaining a history; examining the patient; pulse oximetry; ordering and review of laboratory and imaging studies; arranging urgent treatment with development of a management plan; evaluation of patient's response to treatment; frequent reassessment; and, discussions with other providers as applicable. It was exclusive of separately billable procedures. Discharge Plan Discharge Patient Disposition: Admitted As Inpatient Admit Provider: Rickey Cuellar Clinical Impression: Acute and chronic respiratory failure, Pulmonary hypertension, Interstitial lung disease due to connective tissue disease, Pneumonia Condition: Stable Coding Level of Care Code ED Rn Chemical Dependency for Chg Fwd Exam Comprehensive
--- NOTE | 2021-11-17 11:41 | PC.NURSE ---
pt placed on continuous spo2, nibp, and cm.
[2021-11-17 11:59] LABS: ABG PCO2 29.6 mmHg (35-45); ABG PH Result 7.53 (7.35-7.45); Arterial Blood Gas Hematocrit 43.7 % (37-47); Base Excess ABG 2.5 mmol/L (-2.0-2.0); Blood Gas Allen Test Pos; Blood Gas Sample Site Radial, right; Blood Gas Sample Type Arterial; HCO3 ABG 24.4 mmol/L (22-26); Oxygen Device BIPAP; PO2 ABG 67.8 mmHg (80.0-100.0)
--- NOTE | 2021-11-17 11:59 | PC.NURSE ---
ATTEMPTED 3 IV'S NO SUCCESS.
[2021-11-17 12:12] LABS: Influenza A by IFA Negative (Negative); Influenza B by IFA Negative (Negative)
[2021-11-17] MEDS: cefTRIAXone 1,000 MG in sodium chloride 0.9% (plus) 50 ML 100 MG IV (12:18)
--- NOTE | 2021-11-17 12:19 | CT_ITS ---
WS: [id number] CT HEAD NONCONTRAST HISTORY: AMS TECHNIQUE: Contiguous axial imaging performed through the brain in 2.5 mm imaging. Bone and soft tiss ue windows. Sagittal and coronal reformats reviewed. All CT scans at [facility] use at least one of these dose optimization techniques: automated exposure control; mA and/or kV adjustment per pa tient size (includes targeted exams where dose is matched to clinical indication); or iterative recon struction. DLP: 936.35 mGy.cm COMPARISON: 11/10/2012 No acute intracranial hemorrhage, midline shift or mass effect. Mild atrophy and mild chronic microvascular ischemic disease. These changes are new since 2012. Agai n noted are well-rounded RIGHT frontal lobe with the largest measuring 5.0 mm. Ventricles: Normal size with no hydrocephalus. No inferior displacement of cerebellar tonsils. Paranasal sinuses: Air-fluid level in the RIGHT maxillary sinus and also in the sphenoid sinuses bila terally. Mastoid air cells: Well pneumatized. Calvarium and scalp: Hyperostosis frontalis interna. CT/CT head wo con* [id number] IMPRESSION: 1. No acute intracranial hemorrhage or edema. 2. Mild atrophy and chronic ischemic changes. New since 11/10/2012. 3. RIGHT frontal lobe calcifications are stable. 4. Air-fluid levels in the RIGHT maxillary and sphenoid sinuses bilaterally.
[2021-11-17] MEDS: doxycycline 100 MG in sodium chloride 0.9% (plus) 100 ML IV (12:22)
[2021-11-17] MEDS: ipratropium-albuterol 3 mL Neb INHALATION ×2 (12:23→21:24)
[2021-11-17 12:36] LABS: Basophils % 0.2 %; Hemoglobin 15.2 g/dL (11.5-15.3); Lymphocytes # 0.4 10^3/uL (0.8-4.8); Lymphocytes % 3.5 %; Mean Corpuscular HGB Conc 31.7 g/dL (30.0-36.0); Mean Corpuscular Volume 85.3 fl (81-99); Mean Platelet Volume 10.5 fL (7.4-10.4); Monocytes # 0.2 10^3/uL (0.2-0.9); Monocytes % 1.5 %; Neutrophils # 10.02 10^3/uL (1.8-7.7); Neutrophils % 94.1 %; Nucleated Red Blood Cells % 0 %; Platelet Count 139 10^3/cmm (130-400); Red Blood Count 5.63 10^6/uL (4.1-5.3); Red Cell Distribution Width 15.2 % (12.1-15.1); White Blood Count 10.6 10^3/uL (4.0-10.0)
[2021-11-17 13:39] LABS: Lactic Sepsis W/Reflex 1.4 mmol/L (0.5-2.2)
[2021-11-17 13:42] LABS: Troponin(5th) Baseline 33 ng/L (0-10)
[2021-11-17 13:48] LABS: NT Pro B Type Natriuretic Pept 4229 pg/mL (0-125); Procalcitonin 0.12 ng/mL (0-0.5)
[2021-11-17 14:00] LABS: Alanine Aminotransferase 30 U/L (0-33); Albumin Level 2.8 g/dL (3.5-5.2); Alkaline Phosphatase 62 IU/L (35-105); Anion Gap 17.9 (5-19); Aspartate Amino Transferase 93 U/L (0-32); Blood Urea Nitrogen 18 mg/dL (8-23); C Reactive Protein 99.7 mg/L (0.0-4.9); Calcium 7.2 mg/dL (8.5-10.5); Carbon Dioxide 21 mmol/L (22-29); Chloride 94 mmol/L (98-107); Globulin 2.3 g/dL (1.3-4.6); Glomerular Filtration Rate 100.6 mL/min (90-130); Glucose 98 mg/dL (65-115); Osmolality Calculated 270 mOsm/kg (285-295); Potassium 3.9 mmol/L (3.5-5.1); Sodium 129 mmol/L (136-145); Total Bilirubin 0.8 mg/dL (0.15-1.2); Total Protein 5.1 g/dL (6.6-8.7)
[2021-11-17] MEDS: sodium chloride 0.9% 1,000 ML 999 ML IV (14:17)
--- NOTE | 2021-11-17 14:24 | CT_ITS ---
WS: [id number] CT CHEST ANGIOGRAPHY WITH REFORMATS HISTORY: respiratory failure TECHNIQUE: Contiguous axial images are obtained through the chest during arterial injection of intrav enous contrast. Images are reconstructed to evaluate the pulmonary arteries. MIP imaging also reviewe d. All CT scans at [facility] use at least one of these dose optimization techniques: automat ed exposure control; mA and/or kV adjustment per patient size (includes targeted exams where dose is matched to clinical indication); or iterative reconstruction. CONTRAST: Omnipaque 350; 70 mL IV. DLP: 561.08 mGy.cm COMPARISON: 08/31/2021 Very good opacification of the pulmonary arteries through the lobar and some of the segmental branche s. Beyond the segmental branches the opacification is becoming limited due to the adjacent airspace d isease. There are very small filling defects within the subsegmental branches of the lower lung field s bilaterally. Highly suspicious for distal emboli. Pulmonary artery is markedly enlarged measuring 3 .6 cm in diameter. Mild atherosclerosis of aorta. There is mild RIGHT heart strain. Similar findings were noted on the prior study. Intraventricular septum is being flattened and displaced in a clockwis e manner. RIGHT heart chambers are enlarged. Scattered hazy opacifications with groundglass attenuation, atelectasis and more focal increasing con solidation. Predominantly within the periphery of the lower lung kelly. No pneumothorax. No pleural effusion. There is moderate mediastinal and hilar adenopathy. Largest lymph nodes along the RIGHT hil ar region measuring up to 15 mm in diameter. The esophagus is ectatic and fluid-filled and extends to the RIGHT of the spine. Patient has a moderate size hiatal hernia. No abnormality noted within the upper abdomen. Thoracic spondylosis. CT/CT angio chest PE protcl [id number] IMPRESSION: 1. No central pulmonary embolism through the segmental branches. Highly likely there may be tiny filling defects in the subsegmental branches in the lower paul ng kelly. 2. Marked pulmonary artery enlargement with RIGHT heart strain. 3. Moderate opacification and groundglass attenuation from Covid 19. These fin dings are new since 08/31/2021. 4. Reactive mediastinal and hilar adenopathy. 5. Enlarged dilated fluid-filled esophagus with moderate size hiatal hernia.
--- NOTE | 2021-11-17 15:01 | PM.HP ---
Providers/Chief Complaint Primary Care Provider: Consuelo Peacock Chief Complaint: POST COVID, RESP DISTRESS History of Present Illness Kathy Ordonez is a 66 year old female who presents to the ER for shortness of breath for the past 2 days. PMH is significant for scleroderma. She states that she tested positive for COVID at a pharmacy in [place], [place]. She endorses having a mostly dry cough but denies fevers, chills, abdominal pain, chest pain, diarrhea, or constipation. She is not vaccinated and has never had COVID before. She wears 2L O2 at home and CPAP at night. She lives at home with a friend. No blood in sputum. Denies any blood in stool or black or tarry stool. Relates she wears 2 L of oxygen all the time for her scleroderma. I called [facility] she indicated she got the test. They reports she had a positive rapid test November 05 at [facility] in [place]. They confirmed this for me over the phone. Review of Systems General: Reports: 10 or more systems reviewed and unremarkable except in HPI and below Const: Denies: fever(s) or chills Eyes: Denies: change in vision ENMT: Denies: throat pain Card: Denies: chest pain Resp: Reports: dyspnea GI: Denies: abdominal pain : Denies: flank pain Musc: Denies: neck pain Skin/Breast: Denies: rash Neuro: Denies: headache(s) Psych: Denies: anxiety Endo: Denies: polyuria Dutch/Lymph: Denies: easy bruising All/Imm: Denies: urticaria Medications/Allergies Home Medications Medication Instructions Recorded Confirmed Last Taken Type aripiprazole 5 mg tablet (Abilify) 5 mg PO BEDTIME 12/13/19 11/17/21 06/16/20 History citalopram 40 mg tablet (Celexa) 40 mg PO DAILY 12/13/19 11/17/21 06/16/20 History dexlansoprazole 60 mg 60 mg PO DAILY 12/13/19 11/17/21 06/16/20 History capsule,biphase delayed release (Dexilant) estradiol 0.5 mg tablet (Estrace) 0.5 mg PO DAILY 12/13/19 11/17/21 06/16/20 History hydrocodone 10 mg-acetaminophen 1 - 2 tab PO Q4H PRN MDD 6 tabs 12/13/19 11/17/21 06/16/20 History 325 mg tablet levothyroxine 112 mcg tablet 112 mcg PO DAILY 12/13/19 11/17/21 06/16/20 History (Synthroid) albuterol sulfate 90 mcg/actuation 2 puff INHALATION Q6H PRN #8.5 g 03/24/21 11/17/21 Unknown Rx aerosol inhaler (Ventolin HFA) umeclidinium 62.5 mcg/actuation 1 inh INHALATION DAILY #30 ea 03/24/21 11/17/21 Unknown Rx blister powder for inhalation (Incruse Ellipta) gabapentin 300 mg capsule 300 mg PO BID 30 Days #60 cap 07/29/21 11/17/21 Unknown Rx hydroxychloroquine 200 mg tablet 200 mg PO BID 30 Days #60 tab 07/29/21 11/17/21 Unknown Rx (Plaquenil) mycophenolate mofetil 500 mg See Rx Instructions PO BID #90 tab 07/29/21 11/17/21 Unknown Rx tablet (CellCept) prednisone 5 mg tablet 5 mg PO DAILY #90 tab 07/29/21 11/17/21 Unknown Rx amlodipine 10 mg tablet 10 mg PO DAILY 11/17/21 11/17/21 Unknown History ergocalciferol (vitamin D2) 1,250 See Rx Instructions .ROUTE .COMPLEX 11/17/21 11/17/21 Unknown History mcg (50,000 unit) capsule furosemide 20 mg tablet (Lasix) 20 mg PO DAILY 11/17/21 11/17/21 Unknown History guaifenesin 600 mg tablet, 600 mg PO BID 11/17/21 11/17/21 Unknown History extended release 12 hr (Mucinex) ibuprofen 800 mg tablet 800 mg PO TID PRN 11/17/21 11/17/21 Unknown History metformin 500 mg tablet,extended 500 mg PO DAILY 11/17/21 11/17/21 Unknown History release 24 hr ondansetron 4 mg disintegrating 4 mg PO TID PRN 11/17/21 11/17/21 Unknown History tablet potassium chloride 20 mEq 20 meq PO DAILY 11/17/21 11/17/21 Unknown History tablet,extended release rosuvastatin 10 mg tablet 10 mg PO BEDTIME 11/17/21 11/17/21 Unknown History selexipag 200 mcg tablet (Uptravi) 200 mcg PO BID 11/17/21 11/17/21 Unknown History tolterodine 4 mg capsule,extended 4 mg PO DAILY 11/17/21 11/17/21 Unknown History release 24 hr trazodone 100 mg tablet 200 mg PO BEDTIME 11/17/21 11/17/21 Unknown History Allergies Allergy/AdvReac Type Severity Reaction Status Date / Time bupropion [From Wellbutrin] Allergy Unknown Verified 11/17/21 14:37 pregabalin [From Lyrica] Allergy UNKNOWN Verified 11/17/21 14:37 venlafaxine [From Effexor] Allergy UNKNOWN Verified 11/17/21 14:37 PFSH Acute PFSH: Medical History (Updated 11/17/21 @ 15:13 by Rickey Cuellar MD) Chronic diarrhea COPD (chronic obstructive pulmonary disease) Diabetes mellitus Fibromyalgia GERD (gastroesophageal reflux disease) Hypothyroidism Pulmonary hypertension Scleroderma Systemic sclerosis with limited cutaneous involvement Surgical History H/O section H/O esophagogastroduodenoscopy (~06/17/20) With balloon dilation History of hysterectomy Status post colonoscopy Family History Other Arthritis Diabetes Heart disease Denies family history of Rheumatoid arthritis Lupus Anesthesia complication Bleeding disorder Social History Quit status (tobacco): has quit using tobacco Year quit tobacco: 2019 Former quit date comment: Hx of 2PPD x 10 Years Second hand smoke exposure: No Smoking risk assessment/counseling performed?: No Alcohol intake: never Counseling given: No Counseling given: No Lives independently: Yes Household members: friend(s) Marital status: / Current occupational status: disabled Pets and animals: Yes History of recent travel: No Current gender identity: Female Vitals/I&O/Wt Last Vital Signs Temp 98.3 F 11/17/21 11:27 Pulse 121 H 11/17/21 12:23 Resp 20 H 11/17/21 12:23 BP 99/55 11/17/21 12:34 Pulse Ox 94 11/17/21 12:23 Weight last 48 hrs Weight 79.379 kg Physical Exam Narrative: EXAM NARRATIVE: General exam no apparent distress HEENT: Patient is on BiPAP.. No obvious organomegaly exam deferred Extremities no cyanosis clubbing or edema, cap refill brisk Skin no rash Neuro no obvious focal deficits. Neck is supple Cardiovascular regular rate and rhythm, no murmur Lungs clear no wheezing or crackles. Abdomen is soft, positive bowel sounds Data : 11/17/21 12:25 11/17/21 13:07 Other Labs: ABG demonstrates pH is 7.53, PCO2 30, PO2 67 on 50% BiPAP Lactic acid 1.4, calcium 7.2, AST 93. Rest of LFTs normal. Troponin 33 with repeated 120 minutes of 31 Influenza negative Procalcitonin 0.12 Chest x-ray bibasilar infiltrates CTA of chest ordered Micro: Microbiology 11/17/21 12:25 Blood Culture - Preliminary Blood SPECIMEN COLLECTED 11/17/21 13:01 Blood Culture - Preliminary Blood SPECIMEN COLLECTED A&P Assessment and plan (1) Acute and chronic respiratory failure: Requiring BiPAP Significant respiratory distress on admission with accessory muscle use Wean BiPAP as tolerated Secondary to COVID-19 pneumonia. Status: Acute (2) Pneumonia due to COVID-19 virus: Likely initiate remdesivir. Check CRP. Initiate dexamethasone Start baricitinib, procalcitonin was negative DuoNeb every 4 hours Incentive spirometry, Acapella Rocephin, doxycycline empirically Prognosis guarded Await CTA Check sputum culture. Status: Acute (3) Interstitial lung disease due to connective tissue disease: Has history of scleroderma, restrictive lung disease Status: Acute (4) Pulmonary hypertension: On medicine for pulmonary hypertension. Continue home medication. Status: Acute (5) Diabetes mellitus: Sliding scale insulin. It is expected sugars will elevate with dexamethasone Status: Acute Plan Acute encephalopathy. Confusion appears to be improving per the emergency department doc. CT head pending. Hold aripiprazole, Neurontin, narcotics currently Currently full code Lovenox for DVT prophylaxis Attestations Medical Necessity Statement*: will require greater than two midnight stay for treatment of COVID-19 pneumonia with respiratory failure. Coding Level of Care Code Acute Plug Stitcher for [facility] Diagnoses Acute and chronic respiratory failure J96.20 Pneumonia due to COVID-19 virus U07.1; J12.82 Interstitial lung disease due to connective tissue disease J84.89; M35.9 Pulmonary hypertension I27.20 Diabetes mellitus E11.9
[2021-11-17 15:33] LABS: SARS Covid-2 Antigen Negative (Negative)
[2021-11-17 15:50] LABS: C Reactive Protein 102.3 mg/L (0.0-4.9)
[2021-11-17] MEDS: iohexol 350 mg/mL 100 mL Btl IV (16:08)
--- NOTE | 2021-11-17 16:40 | PC.NURSE ---
WHILE AT BEDSIDE PT IS MORE ALERT AND ANSWERING QUESTIONS MORE APPROPRIATELY. PT DENIES ANY FURTHER NEEDS. PT PROVIDED WITH PHONE DAUGHTER BROUGHT TO ROLL UP GUIDER OPERATOR.
--- NOTE | 2021-11-17 17:24 | ECG_ITS ---
[facility] Test Date: 2021-11-17 Pat Name: Kathy Ordonez Department: Room: 256 Gender: Female Recruiting Manager: : 1955 Requested By: Narinder Villa Order Number: [id number] Esperanza MD: Jena Boykin M.D. Measurements Intervals [place] Rate: 78 P: 67 CA: 186 QRS: 121 QRSD: 113 T: -5 QT: 441 QTc: 503 Interpretive Statements SINUS RHYTHM INCOMPLETE RIGHT BUNDLE BRANCH BLOCK [90+ ms QRS DURATION, TERMINAL R IN V1/V2, 40+ ms S IN I/aVL/V4/V5/V6] Compared to ECG 11/30/2016 18:18:33 Incomplete right bundle-branch block now present Sinus arrhythmia no longer present Myocardial infarct finding no longer present Electronically Signed On 11-17-2021 22:05:23 LANG PATH THERAPIST by Jena Boykin M.D. [id number]
[2021-11-17] MEDS: enoxaparin 80 mg/0.8 mL Syringe SUBCUT (18:07)
[2021-11-17 18:56] LABS: Troponin 5 6HR 24.84 ng/L (0-10); Troponin 5 6HR Delta -8.16 ng/L (0-12)
[2021-11-17] MEDS: budesonide 0.5 mg/2 mL Neb INHALATION (21:24)
[2021-11-17] MEDS: hydroxychloroquine 200 mg Tablet PO (21:48)
[2021-11-17] MEDS: doxycycline 100 mg Tablet PO (21:48)
[2021-11-17] MEDS: atorvastatin 40 mg Tablet 20 MG PO (21:49)
[2021-11-17] MEDS: dexamethasone 10 mg/mL INJ 6 MG IVP (21:50)
[2021-11-17] MEDS: remdesivir 200 MG in sodium chloride 0.9% (100 ml) 60 ML 100 MG IV (21:54)
[2021-11-17 22:01] LABS: Glucose Point of Care 148 mg/dL (70-110)
[2021-11-18] VITALS (9 sets, daily range): BP systolic 91–104; BP diastolic 52–65; PULSE 71–87; RESP 16–22; TEMP 36.4–36.8; O2SAT 90–95; BMI 32.5
[2021-11-18] MEDS: ipratropium-albuterol 3 mL Neb INHALATION ×4 (03:08→20:55)
[2021-11-18] MEDS: enoxaparin 80 mg/0.8 mL Syringe SUBCUT (04:08)
[2021-11-18 06:12] LABS: Basophils % 0.2 %; Hematocrit 43.2 % (37.0-47.0); Hemoglobin 13.3 g/dL (11.5-15.3); Lymphocytes # 0.3 10^3/uL (0.8-4.8); Lymphocytes % 6.7 %; Mean Corpuscular HGB Conc 30.8 g/dL (30.0-36.0); Mean Corpuscular Hemoglobin 27.1 pg (28.0-34.0); Mean Corpuscular Volume 88.2 fl (81-99); Mean Platelet Volume 10.9 fL (7.4-10.4); Monocytes # 0.1 10^3/uL (0.2-0.9); Monocytes % 2.2 %; Neutrophils % 90.5 %; Nucleated Red Blood Cells % 0 %; Platelet Count 130 10^3/cmm (130-400); Red Cell Distribution Width 14.8 % (12.1-15.1); White Blood Count 5.1 10^3/uL (4.0-10.0)
[2021-11-18 06:47] LABS: Alanine Aminotransferase 35 U/L (0-33); Albumin Level 2.8 g/dL (3.5-5.2); Alkaline Phosphatase 65 IU/L (35-105); Anion Gap 17.5 (5-19); Aspartate Amino Transferase 83 U/L (0-32); Blood Urea Nitrogen 17 mg/dL (8-23); Calcium 7.2 mg/dL (8.5-10.5); Carbon Dioxide 20 mmol/L (22-29); Chloride 99 mmol/L (98-107); Globulin 2.7 g/dL (1.3-4.6); Glomerular Filtration Rate 124.2 mL/min (90-130); Glucose 139 mg/dL (65-115); Osmolality Calculated 280 mOsm/kg (285-295); Potassium 3.5 mmol/L (3.5-5.1); Sodium 133 mmol/L (136-145); Total Bilirubin 0.5 mg/dL (0.15-1.2); Total Protein 5.5 g/dL (6.6-8.7)
[2021-11-18 07:32] LABS: Glucose Point of Care 140 mg/dL (70-110)
[2021-11-18] MEDS: pantoprazole DR 40 mg Tablet PO (08:56)
[2021-11-18] MEDS: hydroxychloroquine 200 mg Tablet PO (08:56)
[2021-11-18] MEDS: doxycycline 100 mg Tablet PO ×2 (08:56→18:46)
[2021-11-18] MEDS: FUROsemide 20 mg Tablet PO (08:56)
[2021-11-18] MEDS: levothyroxine 112 mcg Tablet PO (08:56)
[2021-11-18] MEDS: citalopram 20 mg Tablet 40 MG PO (08:56)
--- NOTE | 2021-11-18 08:59 | USCV_ITS ---
Kathy Odronez Age: 66 Gender: F : 1955 Exam Date: 11/18/2021 09:41 Ordering Phys: Rickey Cuellar MD Technologist: Fabio Daniels Exam Location: [facility] [place] Indication: HYPOTENSION BP: 104 / 61 HR: 80 Rhythm: Other Technical Quality: Technically difficult study MEASUREMENTS (Male / Female) Normal Values 2D ECHO LV Diastolic Diameter PLAX 3.4 cm 4.2 - 5.9 / 3.9 - 5.3 cm LV Systolic Diameter PLAX 2.1 cm IVS Diastolic Thickness 1.0 cm 0.6 - 1.0 / 0.6 - 0.9 cm IVS Systolic Thickness 1.0 cm LVPW Diastolic Thickness 1.0 cm 0.6 - 1.0 / 0.6 - 0.9 cm LVPW Systolic Thickness 1.1 cm LVOT Diameter 2.0 cm LV Ejection Fraction 2D Teich 70.1 % LV Ejection Fraction MOD 2C 67.1 % LV Ejection Fraction 2C AL 68.6 % LA Diameter 3.2 cm LA Width 3.1 cm LA Height 5.1 cm RA Width 3.6 cm RA Height 4.0 cm Aorta at Sinotubular Diameter 2.2 cm M-MODE Aortic Annulus Diameter 2.7 cm LA Ao Ratio MM 1.1 MV E Point Septal Separation 0.7 cm DOPPLER MV Area PHT 3.7 cm squared Mitral E to A Ratio 0.6 MV E' Velocity 56.0 cm/s TR Peak Velocity 329.9 cm/s TR Peak Gradient 43.5 mmHg TR Mean Velocity 290.7 cm/s TR Mean Gradient 34.5 mmHg TR Velocity Time Integral 94.5 cm RV Acceleration Time 0.0 s RV Ejection Time 0.2 s RV AcT/ET 0.2 FINDINGS Left Ventricle Normal left ventricular cavity size. Increased left ventricular wall thickness. Normal left ventricular systolic function. Left ventricular ejection fraction is estimated at 65 %. Grade I diastolic dysfunction (abnormal relaxation filling pattern), normal to mildly elevated filling pressures. Flattened septum in systole consistent with right ventricle pressure overload. Right Ventricle Moderately dilated right ventricle with moderately decreased right ventricle systolic function. Right Atrium Right atrium not well visualized. Left Atrium Left atrium not well visualized. Mitral Valve Moderate mitral annular calcification. Thickened mitral valve. Trace mitral valve regurgitation. Aortic Valve Aortic valve not well visualized. Trace aortic valve regurgitation. Tricuspid Valve Tricuspid valve not well visualized. Mild tricuspid valve regurgitation. Pulmonic Valve Pulmonic valve not well visualized. No pulmonary valve stenosis. Mild pulmonary valve regurgitation. Pericardium No pericardial effusion. Aorta Normal size aortic root and proximal ascending aorta. CONCLUSIONS 1. This is a technically difficult study. 2. Normal left ventricular cavity size and systolic function. Increased left ventricular wall thickness. Left ventricular ejection fraction is estimated at 65 %. Grade I diastolic dysfunction (abnormal relaxation filling pattern), normal to mildly elevated filling pressures. Flattened septum in systole consistent with right ventricle pressure overload. 3. Moderately dilated right ventricle with moderately decreased right ventricle systolic function. 4. Mild tricuspid valve regurgitation. 5. When compared to previous echocardiogram dated 11/05/2020, there may not have been any significant change. Jena Boykin MD (Electronically Signed) Final Date: 18 November 2021 18:07 S
--- NOTE | 2021-11-18 09:04 | PC.NURSE ---
Talked to Amy Napier to bring Uptravi medication in for patient
[2021-11-18] MEDS: budesonide 0.5 mg/2 mL Neb INHALATION ×2 (09:08→20:55)
--- NOTE | 2021-11-18 09:13 | PC.RESP ---
RT Shift Note Frequent safety and respiratory rounds continue. Orders completed as indicated. Patient monitored pre and post treatments throughout shift. Patient [Did.] tolerate treatments appropriately. Condition [DidNotChange]. Patient and/or retail field representative educated on respiratory treatment and medications. Patient and/or retail field representative [verbalized understanding]. Will continue to monitor patient progress.
--- NOTE | 2021-11-18 10:02 | PC.CHAP ---
Pastoral Care Encounter/Spiritual Assessment Type of Contact [] Declined financial brokers visit [] Patient/Family/Request visit [] Outpatient visit [] Follow-up visit [] Physician referral [] Code/Alert [x] Routine visit [] Staff referral [] Actively dying [] Patient sleeping [] Family support [] [] Out of room [] Palliative care [] [] Receiving care in room [] Pre-surgical visit [] Trauma [] Long length of stay [] ICU visit [x] Other: Relational/Emotional Strength [] Patient feels connected with others/family/visitors/staff [] Distress [] Loneliness/isolation [] Abandonment Spirituality of Patient [] Person of Eryn [] Attends Uatsdin of their Eryn [] Believes in Prayer [] Reads Bible or Gnosticist materials [] There are Spiritual issues to be addressed Concaving Machine Operator Interventions [] Prayer [] Active listening [] Non-anxious presence [] Spiritual/emotional support [] Crisis/trauma care [] Spiritual counseling [] Bereavement support [] Provided bereavement packet [] Provided Bible/devotional materials [] Provided toy/stuffed animal, coloring book to patient or family member [] Provided Communion [] Anointing/[place] [] Salvation [x] Completed spiritual assessment [] Other: Impact on Illness or Injury [] Angry [] Fearful [] Anxious [] Often cries [] Exhaustion [] Unable to work [] Unable to attend zoroastrianism [] Unable to walk/stand [] Unable to read [] Unable to drive [] Unable to eat/drink [] Unable to sleep [] Unable to be with family [] Patient intubated [] Other: covid Summary Time spent with patient
[2021-11-18] MEDS: cefTRIAXone 1,000 MG in sodium chloride 0.9% (plus) 50 ML 100 MG IV (11:13)
[2021-11-18 12:29] LABS: Glucose Point of Care 358 mg/dL (70-110)
[2021-11-18] MEDS: insulin lispro 100 unit/1 mL SUBCUT (12:37)
--- NOTE | 2021-11-18 13:53 | PM.PN ---
Subjective Subjective: Interval history: Patricia reports she is doing okay. She wonders when she can go home. She denies being short of breath or having any chest discomfort. Current oxygen requirement is 4 L. Medications: Reviewed: Yes Vitals/I&O/Wt Last Vital Signs Temp 97.6 F 11/18/21 11:32 Pulse 87 11/18/21 11:32 Resp 16 11/18/21 11:32 BP 101/65 11/18/21 11:32 Pulse Ox 92 11/18/21 11:32 11/17/21 11/18/21 11/18/21 22:59 06:59 14:59 Intake Total 1150 / 1150 260 / 1410 240 / 240 Balance 1150 / 1150 260 / 1410 240 / 240 Weight last 48 hrs Weight 83.489 kg Weight 79.379 kg Physical Exam Narrative: EXAM NARRATIVE: General exam no apparent distress Currently on 4 L Neck is supple Cardiovascular regular rate and rhythm Lungs clear Abdomen is soft Extremities no cyanosis clubbing or edema Data : 11/18/21 04:12 11/18/21 04:12 Micro: Microbiology 11/17/21 13:01 Blood Culture - Preliminary Blood NEGATIVE TO DATE 11/17/21 12:25 Blood Culture - Preliminary Blood NEGATIVE TO DATE A&P Assessment and plan (1) Acute and chronic respiratory failure: Now on 4 L Wean as tolerated. Baseline is 2 to 3 L Secondary to COVID-19 pneumonia. Status: Acute (2) Pneumonia due to COVID-19 virus: Continue remdesivir. Continue dexamethasone Continue baricitinib, procalcitonin was negative DuoNeb every 4 hours Incentive spirometry, Acapella Rocephin, doxycycline empirically Prognosis guarded CTA demonstrates some small peripheral pulmonary emboli. Full dose anticoagulation with Lovenox was initiated Await sputum culture. Discontinue Plaquenil while on baricitinib Status: Acute (3) Interstitial lung disease due to connective tissue disease: Has history of scleroderma, restrictive lung disease Status: Acute (4) Pulmonary hypertension: On medicine for pulmonary hypertension. Continue home medication. Status: Acute (5) Diabetes mellitus: Sliding scale insulin. It is expected sugars will elevate with dexamethasone Status: Acute Plan Acute encephalopathy. Appears back to baseline. CT had no acute changes. Pulmonary embolism. Full dose anticoagulation. Await echocardiogram. Convert to Eliquis Currently full code Lovenox for DVT prophylaxis Attestations Medical Necessity Statement*: Needs continued hospitalization for treatment of Covid 19 pneumonia Coding Level of Care Code Acute School Psychologist for [facility] Diagnoses Acute and chronic respiratory failure J96.20 Pneumonia due to COVID-19 virus U07.1; J12.82 Interstitial lung disease due to connective tissue disease J84.89; M35.9 Pulmonary hypertension I27.20 Diabetes mellitus E11.9
--- NOTE | 2021-11-18 14:02 | USCV_ITS ---
Kathy Ordonez Age: 66 Gender: F : 1955 Exam Date: 11/18/2021 15:40 Ordering Phys: Rickey Cuellar MD Technologist: ROHINI [place]am [place] [facility] [place]: PE HISTORY: PE PROCEDURES: The venous duplex Doppler examination of both lower extremities was performed in the standard fashion. The following venous structures were evaluated: common femoral vein, profunda vein, proximal portion of the greater saphenous vein, superficial femoral vein, and the popliteal vein. In addition, the posterior tibial and peroneal trunk were evaluated. FINDINGS: Normal 2-D Doppler and augmentation and compressibility throughout the lower extremity venous structures. Additional imaging through the proximal calf veins also reveals no thrombus. Limited evaluation of the greater saphenous vein is patent with no thrombus. CONCLUSIONS No DVT bilateral lower extremities. Dr. Pippa Murdock DO (Electronically Signed) Final Date: 19 November 2021 07:34 S
[2021-11-18 17:37] LABS: Glucose Point of Care 122 mg/dL (70-110)
[2021-11-18 17:52] LABS: Quest SARS-CoV-2 RNA NOT DETECTED (NOT DETECTED)
[2021-11-18] MEDS: remdesivir 100 MG in sodium chloride 0.9% (100 ml) 80 ML IV ×2 (18:36→18:38)
[2021-11-18] MEDS: atorvastatin 40 mg Tablet 20 MG PO (20:05)
[2021-11-18] MEDS: apixaban 5 mg Tablet 10 MG PO (20:05)
[2021-11-18] MEDS: dexamethasone 10 mg/mL INJ 6 MG IVP (20:05)
[2021-11-18] MEDS: trazodone 100 mg Tablet 200 MG PO (22:01)
[2021-11-19] VITALS (14 sets, daily range): BP systolic 86–123; BP diastolic 45–74; PULSE 68–90; RESP 16–20; TEMP 36.1–36.9; O2SAT 90–96
[2021-11-19] MEDS: ipratropium-albuterol 3 mL Neb INHALATION ×4 (03:38→20:59)
[2021-11-19 06:09] LABS: Basophils % 0.1 %; Hematocrit 38.5 % (37.0-47.0); Hemoglobin 12.3 g/dL (11.5-15.3); Lymphocytes # 0.6 10^3/uL (0.8-4.8); Mean Corpuscular HGB Conc 31.9 g/dL (30.0-36.0); Mean Corpuscular Hemoglobin 27.5 pg (28.0-34.0); Mean Corpuscular Volume 85.9 fl (81-99); Mean Platelet Volume 11.3 fL (7.4-10.4); Monocytes # 0.3 10^3/uL (0.2-0.9); Monocytes % 3.8 %; Neutrophils # 6.03 10^3/uL (1.8-7.7); Neutrophils % 87.5 %; Nucleated Red Blood Cells % 0 %; Platelet Count 151 10^3/cmm (130-400); Red Blood Count 4.48 10^6/uL (4.1-5.3); Red Cell Distribution Width 15.1 % (12.1-15.1); White Blood Count 6.9 10^3/uL (4.0-10.0)
[2021-11-19 06:28] LABS: Glucose Point of Care 128 mg/dL (70-110)
[2021-11-19 06:38] LABS: Alanine Aminotransferase 31 U/L (0-33); Albumin Level 2.6 g/dL (3.5-5.2); Alkaline Phosphatase 55 IU/L (35-105); Anion Gap 15.3 (5-19); Aspartate Amino Transferase 51 U/L (0-32); Blood Urea Nitrogen 22 mg/dL (8-23); Calcium 7.3 mg/dL (8.5-10.5); Carbon Dioxide 21 mmol/L (22-29); Chloride 102 mmol/L (98-107); Globulin 2.3 g/dL (1.3-4.6); Glomerular Filtration Rate 100.6 mL/min (90-130); Glucose 136 mg/dL (65-115); Osmolality Calculated 285 mOsm/kg (285-295); Potassium 3.3 mmol/L (3.5-5.1); Sodium 135 mmol/L (136-145); Total Bilirubin 0.4 mg/dL (0.15-1.2); Total Protein 4.9 g/dL (6.6-8.7)
[2021-11-19 06:58] LABS: C Reactive Protein 59.1 mg/L (0.0-4.9)
[2021-11-19] MEDS: budesonide 0.5 mg/2 mL Neb INHALATION ×2 (08:09→20:59)
[2021-11-19] MEDS: potassium chloride ER 20 mEq Tablet 40 MEQ PO (09:53)
[2021-11-19] MEDS: doxycycline 100 mg Tablet PO ×2 (09:53→17:34)
[2021-11-19] MEDS: citalopram 20 mg Tablet 40 MG PO (09:53)
[2021-11-19] MEDS: apixaban 5 mg Tablet 10 MG PO ×2 (09:54→20:39)
[2021-11-19] MEDS: levothyroxine 112 mcg Tablet PO (09:54)
[2021-11-19] MEDS: pantoprazole DR 40 mg Tablet PO (09:54)
--- NOTE | 2021-11-19 09:56 | P.PN_ITS ---
Subjective Subjective: Interval history: Kathy wants to go home today. She is still on 4 L of oxygen. She states she is feeling okay, and thinking okay. Wants to see her daughter. Medications: Reviewed: Yes Vitals/I&O/Wt Last Vital Signs Temp 97.4 F L 11/19/21 08:00 Pulse 90 11/19/21 08:15 Resp 18 11/19/21 08:11 BP 86/45 11/19/21 08:00 Pulse Ox 92 11/19/21 08:11 11/18/21 11/19/21 11/19/21 22:59 06:59 14:59 Intake Total 253.333 / 733.333 240 / 973.333 200 / 200 Output Total 420 / 420 Balance 253.333 / 733.333 -180 / 553.333 200 / 200 Weight last 48 hrs Weight 83.489 kg Weight 79.379 kg Physical Exam Narrative: EXAM NARRATIVE: General exam no apparent distress. Mental status appears to be back to baseline. Currently on 4 L Neck is supple Cardiovascular regular rate and rhythm Lungs clear Abdomen is soft Extremities no cyanosis clubbing or edema Data : 11/19/21 05:54 11/19/21 05:54 Micro: Microbiology 11/17/21 13:01 Blood Culture - Preliminary Blood NEGATIVE TO DATE 11/17/21 12:25 Blood Culture - Preliminary Blood NEGATIVE TO DATE A&P Assessment and plan (1) Acute and chronic respiratory failure: Now on 4 L Try to wean. Baseline is 2 to 3 L Secondary to COVID-19 pneumonia. Cannot rule out that small pulmonary emboli co uld have impacted this as well. Status: Acute (2) Pneumonia due to COVID-19 virus: Continue remdesivir. Continue dexamethasone Continue baricitinib, procalcitonin was negative DuoNeb every 4 hours Incentive spirometry, Acapella Rocephin, doxycycline empirically CTA demonstrates some small peripheral pulmonary emboli. Anticoagulation transition to Eliquis Await sputum culture. Discontinue Plaquenil while on baricitinib Plan discharge if we can see stability over the next 24 hours, or improvement. Status: Acute (3) Interstitial lung disease due to connective tissue disease: Has history of scleroderma, restrictive lung disease Status: Acute (4) Pulmonary hypertension: On medicine for pulmonary hypertension. Continue home medication. Status: Acute (5) Diabetes mellitus: Sliding scale insulin. It is expected sugars will elevate with dexamethasone Status: Acute Plan Acute encephalopathy. Appears back to baseline. CT had no acute changes. Pulmonary embolism. Full dose anticoagulation. Converted to Eliquis. Echocardiogram demonstrates EF of 65%, grade 1 diastolic dysfunction, moderately dilated right ventricle with decreased function which is unchanged Currently full code Eliquis for DVT prophylaxis Attestations Medical Necessity Statement*: Needs continued hospitalization until definitive improvement from Covid 19 pneumonia with lessening oxygen need or stability for the next 24 hours. Coding Level of Care Code Acute Physical Laboratory Assistant for [facility] Diagnoses Acute and chronic respiratory failure J96.20 Pneumonia due to COVID-19 virus U07.1; J12.82 Interstitial lung disease due to connective tissue disease J84.89; M35.9 Pulmonary hypertension I27.20 Diabetes mellitus E11.9
[2021-11-19 11:32] LABS: Alanine Aminotransferase 34 U/L (0-33); Albumin Level 2.7 g/dL (3.5-5.2); Alkaline Phosphatase 55 IU/L (35-105); Anion Gap 17.3 (5-19); Aspartate Amino Transferase 54 U/L (0-32); Blood Urea Nitrogen 22 mg/dL (8-23); Calcium 8.2 mg/dL (8.5-10.5); Carbon Dioxide 18 mmol/L (22-29); Chloride 101 mmol/L (98-107); Globulin 2.7 g/dL (1.3-4.6); Glomerular Filtration Rate 100.6 mL/min (90-130); Glucose 138 mg/dL (65-115); Osmolality Calculated 282 mOsm/kg (285-295); Potassium 3.3 mmol/L (3.5-5.1); Sodium 133 mmol/L (136-145); Total Bilirubin 0.5 mg/dL (0.15-1.2); Total Protein 5.4 g/dL (6.6-8.7)
[2021-11-19 11:51] LABS: Glucose Point of Care 151 mg/dL (70-110)
[2021-11-19] MEDS: cefTRIAXone 1,000 MG in sodium chloride 0.9% (plus) 50 ML 100 MG IV (12:43)
--- NOTE | 2021-11-19 13:13 | PC.CHAP ---
Pastoral Care Encounter/Spiritual Assessment Type of Contact [] Declined behavior therapist visit [] Patient/Family/Request visit [] Outpatient visit [] Follow-up visit [] Physician referral [] Code/Alert [] Routine visit [] Staff referral [] Actively dying [] Patient sleeping [] Family support [] [] Out of room [] Palliative care [] [] Receiving care in room [] Pre-surgical visit [] Trauma [] Long length of stay [] ICU visit [x] Other: isolation Relational/Emotional Strength [] Patient feels connected with others/family/visitors/staff [] Distress [] Loneliness/isolation [] Abandonment Spirituality of Patient [] Person of Reyn [] Attends Temple of their Eryn [] Believes in Prayer [] Reads Bible or Muslim materials [] There are Spiritual issues to be addressed Alumni Secretary Interventions [] Prayer [] Active listening [] Non-anxious presence [] Spiritual/emotional support [] Crisis/trauma care [] Spiritual counseling [] Bereavement support [] Provided bereavement packet [] Provided Bible/devotional materials [] Provided toy/stuffed animal, coloring book to patient or family member [] Provided Communion [] Anointing/[place] [] Salvation [] Completed spiritual assessment [] Other: Impact on Illness or Injury [] Angry [] Fearful [] Anxious [] Often cries [] Exhaustion [] Unable to work [] Unable to attend adventism [] Unable to walk/stand [] Unable to read [] Unable to drive [] Unable to eat/drink [] Unable to sleep [] Unable to be with family [] Patient intubated [] Other: Summary isolation Time spent with patient 5 mins
[2021-11-19 13:24] LABS: Glucose Point of Care 151 mg/dL (70-110)
[2021-11-19 17:20] LABS: Glucose Point of Care 115 mg/dL (70-110)
--- NOTE | 2021-11-19 20:10 | PC.NURSE ---
i reported low temp 96.9 to nurse
[2021-11-19] MEDS: trazodone 100 mg Tablet 200 MG PO (20:39)
[2021-11-19] MEDS: atorvastatin 40 mg Tablet 20 MG PO (20:39)
[2021-11-19 21:16] LABS: Glucose Point of Care 127 mg/dL (70-110)
[2021-11-19] MEDS: dexamethasone 10 mg/mL INJ 6 MG IVP (21:50)
[2021-11-20] MEDS: ipratropium-albuterol 3 mL Neb INHALATION ×2 (03:22→09:26)
[2021-11-20 03:26] VITALS: PULSE 72; RESP 16; O2SAT 92
[2021-11-20 03:38] VITALS: BP 93/57; PULSE 69; O2SAT 90
[2021-11-20 06:49] LABS: Glucose Point of Care 163 mg/dL (70-110)
[2021-11-20 07:30] VITALS: BP 103/67; PULSE 73; RESP 20; O2SAT 93
--- NOTE | 2021-11-20 08:22 | PM.DCS ---
Discharge Providers Date of Admission: 11/17/21 14:45 Date of Discharge: November 20, 2021 Attending Provider at Admission: Rickey Cuellar MD Attending Provider at Discharge: Rickey Cuellar MD Primary Care Provider: Consuelo Peacock Diagnoses at Discharge Discharge Diagnosis (1) Acute and chronic respiratory failure: Status: Acute (2) Pneumonia due to COVID-19 virus: Status: Acute (3) Interstitial lung disease due to connective tissue disease: Status: Acute (4) Pulmonary hypertension: Status: Acute (5) Diabetes mellitus: Status: Acute Reason for Visit Reason for Visit: POST COVID, RESP DISTRESS Hospital Course Hospital Course Mrs. Ordonez is a 66-year-old white female with scleroderma who presented to the hospital on November 17 with confusion, respiratory distress. She had tested positive for Covid on November 05 at an outside hospital. She initially required BiPAP. She was placed on remdesivir, dexamethasone, baricitinib. She has underlying severe pulmonary hypertension, likely secondary to her scleroderma. CTA was also performed demonstrating no central pulmonary embolism but small filling defects subsegmental branches consistent with pulmonary embolism. Changes consistent with Covid 19 pneumonia were also noted. Head CT was negative. Venous duplex negative. Echocardiogram unchanged from previous, which showed a preserved EF, 1/4 diastolic dysfunction, moderately dilated right ventricle and decreased function. During her hospital stay she had gradual improvement, and on November 20 she was on 2.5 L requesting to go home. She normally uses 2 to 3 L at home. Home oxygen evaluation will be done, and she will be discharged. She was anticoagulated while in the hospital, with conversion to Eliquis. She should take 10 mg twice a day for a week and then 5 mg twice a day. She was counseled on possible side effects. She should follow-up with her primary care provider in 3 to 5 days. Physical Exam Narrative: EXAM NARRATIVE: General exam no distress Neck is supple Cardiovascular regular rate and rhythm Lungs distant sounds, no wheezing Abdomen is soft, positive bowel sounds Extremities no cyanosis clubbing or edema Discharge Data Studies Completed and Pending Completed Studies During Hospitalization Category Date Time Status CT head wo con* [id number] Urgent Cat Scan 11/17/21 12:19 Completed CTA chest [CT angio chest PE protcl [id number]] Urgent Cat Scan 11/17/21 14:24 Completed XR chest 1V portable [id number] Urgent Exams 11/17/21 11:23 [place] [id number] Routine Ultrasound 11/18/21 14:02 Completed CV. echo complete* [id number] Routine Ultrasound 11/18/21 08:59 Completed Pending at discharge Category Date Time Status Blood Culture Stat Lab 11/17/21 12:25 Results Sputum Culture and Gram Stain Routine Lab 11/17/21 15:17 Uncollected Radiology Impressions Chest X-Ray 11/17/21 11:23 Impression: 1. Bibasilar pulmonary opacities which could represent acute pneumonia. 2. Atherosclerosis. Head CT 11/17/21 12:19 IMPRESSION: 1. No acute intracranial hemorrhage or edema. 2. Mild atrophy and chronic ischemic changes. New since 11/10/2012. 3. RIGHT frontal lobe calcifications are stable. 4. Air-fluid levels in the RIGHT maxillary and sphenoid sinuses bilaterally. Chest CTA 11/17/21 14:24 IMPRESSION: 1. No central pulmonary embolism through the segmental branches. Highly likely there may be tiny filling defects in the subsegmental branches in the lower lung kelly. 2. Marked pulmonary artery enlargement with RIGHT heart strain. 3. Moderate opacification and groundglass attenuation from Covid 19. These findings are new since 08/31/2021. 4. Reactive mediastinal and hilar adenopathy. 5. Enlarged dilated fluid-filled esophagus with moderate size hiatal hernia. Laboratory Results WBC 6.9 10^3/uL (4.0-10.0) 11/19/21 05:54 RBC 4.48 10^6/uL (4.1-5.3) 11/19/21 05:54 Hgb 12.3 g/dL (11.5-15.3) 11/19/21 05:54 Hct 38.5 % (37.0-47.0) 11/19/21 05:54 MCV 85.9 fl (81-99) 11/19/21 05:54 MCH 27.5 pg (28.0-34.0) L 11/19/21 05:54 MCHC 31.9 g/dL (30.0-36.0) 11/19/21 05:54 RDW 15.1 % (12.1-15.1) 11/19/21 05:54 Plt Count 151 10^3/cmm (130-400) 11/19/21 05:54 MPV 11.3 fL (7.4-10.4) H 11/19/21 05:54 Neut % (Auto) 87.5 % 11/19/21 05:54 Lymph % (Auto) 8.0 % 11/19/21 05:54 Stark % (Auto) 3.8 % 11/19/21 05:54 Eos % (Auto) 0.0 % 11/19/21 05:54 Baso % (Auto) 0.1 % 11/19/21 05:54 Neut # (Auto) 6.03 10^3/uL (1.8-7.7) 11/19/21 05:54 Lymph # (Auto) 0.6 10^3/uL (0.8-4.8) L 11/19/21 05:54 Stark # (Auto) 0.3 10^3/uL (0.2-0.9) 11/19/21 05:54 Eos # (Auto) 0.0 10^3/uL (0.0-0.8) 11/19/21 05:54 Baso # (Auto) 0.0 10^3/uL (0.0-0.1) 11/19/21 05:54 Nucleated RBC % (auto) 0 % 11/19/21 05:54 Nucleated RBCs # 0.0 /100WBC 11/19/21 05:54 Specimen Type Arterial 11/17/21 11:48 Sample Site Radial, right 11/17/21 11:48 ABG pH 7.53 (7.35-7.45) H 11/17/21 11:48 ABG pCO2 29.6 mmHg (35-45) L 11/17/21 11:48 ABG pO2 67.8 mmHg (80.0-100.0) L 11/17/21 11:48 ABG HCO3 24.4 mmol/L (22-26) 11/17/21 11:48 ABG Base Excess 2.5 mmol/L (-2.0-2.0) H 11/17/21 11:48 Evangelist Test Pos 11/17/21 11:48 Hematocrit 43.7 % (37-47) 11/17/21 11:48 O2 Delivery Device Bipap 11/17/21 11:48 FiO2 50.0 % 11/17/21 11:48 Category Planner ID Abdi 11/17/21 11:48 Sodium 133 mmol/L (136-145) L 11/19/21 10:32 Potassium 3.3 mmol/L (3.5-5.1) L 11/19/21 10:32 Chloride 101 mmol/L (98-107) 11/19/21 10:32 Carbon Dioxide 18 mmol/L (22-29) L 11/19/21 10:32 Anion Gap 17.3 (5-19) 11/19/21 10:32 BUN 22 mg/dL (8-23) 11/19/21 10:32 Creatinine 0.6 mg/dL (0.5-0.9) 11/19/21 10:32 GFR Calculation 100.6 mL/min (90-130) 11/19/21 10:32 Glucose 138 mg/dL (65-115) H 11/19/21 10:32 POC Glucose 163 mg/dL (70-110) H 11/20/21 06:45 Calculated Osmolality 282 mOsm/kg (285-295) L 11/19/21 10:32 Lactic Acid 1.4 mmol/L (0.5-2.2) 11/17/21 13:07 Calcium 8.2 mg/dL (8.5-10.5) L 11/19/21 10:32 Total Bilirubin 0.5 mg/dL (0.15-1.2) 11/19/21 10:32 AST 54 U/L (0-32) H 11/19/21 10:32 ALT 34 U/L (0-33) H 11/19/21 10:32 Alkaline Phosphatase 55 IU/L (35-105) 11/19/21 10:32 Troponin T Baseline 33 ng/L (0-10) H 11/17/21 13:07 Troponin T 120 Minute 31.00 ng/L (0-10) H 11/17/21 14:24 Delta Troponin T -2.00 ABS# (0-10) L 11/17/21 14:24 Troponin T Hi Sens 6Hr 24.84 ng/L (0-10) H 11/17/21 18:24 Troponin T Hi Sens 6Hr Delta -8.16 ng/L (0-12) L 11/17/21 18:24 C-Reactive Protein 59.1 mg/L (0.0-4.9) H 11/19/21 05:54 NT-Pro-B Natriuret Pep 4229 pg/mL (0-125) H 11/17/21 13:07 Total Protein 5.4 g/dL (6.6-8.7) L 11/19/21 10:32 Albumin 2.7 g/dL (3.5-5.2) L 11/19/21 10:32 Globulin 2.7 g/dL (1.3-4.6) 11/19/21 10:32 Procalcitonin 0.12 ng/mL (0-0.5) 11/17/21 13:07 Influenza Type A Ag Negative (Negative) 11/17/21 11:49 Influenza Type B Ag Negative (Negative) 11/17/21 11:49 SARS-CoV-2 RNA (RT-PCR) Not detected (NOT DETECTED) 11/17/21 14:56 SARS-CoV-2 Ag (Rapid) Negative (Negative) 11/17/21 14:56 Vitals Last Vital Signs Temp 96.9 F L 11/19/21 20:00 Pulse 73 11/20/21 07:30 Resp 20 H 11/20/21 07:30 BP 103/67 11/20/21 07:30 Pulse Ox 93 11/20/21 07:30 Discharge Plan Discharge Patient Disposition: Home Condition: Stable Prescriptions: New doxycycline monohydrate 100 mg Tablet 100 mg PO BID Qty: 10 0RF Eliquis DVT-PE Treat 30D Start 5 mg (74 tabs) tablets,dose pack See Rx Instructions .ROUTE .COMPLEX Qty: 74 0RF Rx Instructions: orally per package directions Continued albuterol sulfate [Ventolin HFA] 90 mcg/actuation HFA aerosol inhaler 2 puff INHALATION Q6H PRN (Reason: shortness of breath) Qty: 8.5 3RF Incruse Ellipta 62.5 mcg/actuation blister with device 1 inh INHALATION DAILY Qty: 30 3RF hydroxychloroquine [Plaquenil] 200 mg tablet 200 mg PO BID 30 Days Qty: 60 3RF mycophenolate mofetil [CellCept] 500 mg tablet See Rx Instructions PO BID Qty: 90 3RF Rx Instructions: take 2 tabs in AM and 1 tab in Pm prednisone 5 mg tablet 5 mg PO DAILY Qty: 90 1RF gabapentin 300 mg capsule 300 mg PO BID 30 Days Qty: 60 3RF hydrocodone-acetaminophen 10-325 mg tablet 1 - 2 tab PO Q4H MDD 6 tabs PRN (Reason: Pain) 0RF citalopram [Celexa] 40 mg tablet 40 mg PO DAILY 0RF levothyroxine [Synthroid] 112 mcg tablet 112 mcg PO DAILY 0RF Dexilant 60 mg capsule,biphase delayed releas 60 mg PO DAILY 0RF aripiprazole [Abilify] 5 mg tablet 5 mg PO BEDTIME 0RF tolterodine 4 mg capsule,extended release 24hr 4 mg PO DAILY 0RF trazodone 100 mg tablet 200 mg PO BEDTIME 0RF amlodipine 10 mg tablet 10 mg PO DAILY 0RF ergocalciferol (vitamin D2) 1,250 mcg (50,000 unit) capsule See Rx Instructions .ROUTE .COMPLEX 0RF Rx Instructions: 2 CAPS PO EVERY 7 DAYS (ON TUESDAY) ondansetron 4 mg tablet,disintegrating 4 mg PO TID PRN (Reason: Nausea And Vomiting) 0RF metformin 500 mg tablet extended release 24 hr 500 mg PO DAILY 0RF rosuvastatin 10 mg tablet 10 mg PO BEDTIME 0RF Lasix 20 mg tablet 20 mg PO DAILY 0RF Rx Instructions: pt states still taking[facility] last filled 07/28/21 14d/s Mucinex 600 mg tablet extended release 12hr 600 mg PO BID 0RF potassium chloride 20 mEq tablet extended release 20 meq PO DAILY 0RF Rx Instructions: pt states still taking[facility] last filled 07/28/21 14d/s Uptravi 200 mcg tablet 200 mcg PO BID 0RF Rx Instructions: swallow whole; do not crush, chew, open, break/cut or dissolve Discontinued estradiol [Estrace] 0.5 mg tablet 0.5 mg PO DAILY 0RF ibuprofen 800 mg Tablet 800 mg PO TID PRN (Reason: Pain) 0RF Discharge Orders: Discharge Order (Routine); Ordered 11/20/21 Ordered By: Rickey Cuellar Referrals: Consuelo Peacock FNP [Primary Care Provider] - 4-7 days Patient Instructions: Doxycycline (By mouth), Apixaban (By mouth) (Eliquis), Pulmonary Embolism (GEN), COVID-19 (Coronavirus Disease 2019) (ED), Opioid Safety, Pneumonia Stoplight, Pneumonia - Viral Activity Restrictions/Additional Instructions: He had a pulmonary embolism upon presentation. She will take Eliquis 10 mg twice daily for 7 days and then 5 mg twice daily until stopped by her primary care provider. Take all medicine as prescribed Return if any worsening Home oxygen evaluation prior to discharge Monitor your stool for any blood. Notify somebody immediately should this occur. It could be bright red or black and tarry. Discharge Attestations Time Spent in Discharge Care*: greater than 30 min Quality Metrics Clinical Quality Measures [ Venous Thromboembolism { Contraindication to Overlap Therapy: Overlap treatment not indicated; VTE Discharge Education: Education about anticoagulant therapy/Care Notes given; Contraindication to Pharm VTE Prophylaxis: None; Pharmacological prophylaxis given;}] Coding Level of Care Code Acute [facility] note Diagnoses Acute and chronic respiratory failure J96.20 Pneumonia due to COVID-19 virus U07.1; J12.82 Interstitial lung disease due to connective tissue disease J84.89; M35.9 Pulmonary hypertension I27.20 Diabetes mellitus E11.9
[2021-11-20] MEDS: doxycycline 100 mg Tablet PO (08:48)
[2021-11-20] MEDS: citalopram 20 mg Tablet 40 MG PO (08:48)
[2021-11-20] MEDS: levothyroxine 112 mcg Tablet PO (08:49)
[2021-11-20] MEDS: apixaban 5 mg Tablet 10 MG PO (08:49)
[2021-11-20] MEDS: pantoprazole DR 40 mg Tablet PO (08:50)
[2021-11-20] MEDS: insulin lispro 100 unit/1 mL SUBCUT (08:51)
--- NOTE | 2021-11-20 08:58 | PC.NURSE ---
Patient's home meds given back to patient.
[2021-11-20] MEDS: budesonide 0.5 mg/2 mL Neb INHALATION (09:26)
[2021-11-20 09:30] VITALS: PULSE 78; RESP 18; O2SAT 93
[2021-11-20 09:31] VITALS: O2SAT 80; O2SAT 90
[2021-11-20 09:35] VITALS: PULSE 92
--- NOTE | 2021-11-20 10:46 | PC.SOCIAL ---
IMM Update pg 2 of IMM updated and reviewed w/ patient. Copy provided & Copy placed in chart.
--- NOTE | 2021-11-20 11:04 | PC.NURSE ---
educ pt bleeding risks and when to return to the er, and use of excess imodium
== END 2021-11-20 10:50 | disposition home or self-care (01) | DRG 177 ==
LOC: ER 14:32 → MEDSURG 17:08
PROVIDERS: Admitting Provider Internal Medicine; Emergency Provider Emergency Medicine; PCP Nurse Practitioner Family; Visit Provider Internal Medicine
DX: U07.1 COVID-19 (principal); J12.82 Pneumonia due to coronavirus disease 2019; J96.20 Acute and chronic respiratory failure, unspecified whether with hypoxia or hypercapnia; I26.93 Single subsegmental thrombotic pulmonary embolism without acute cor pulmonale; M34.81 Systemic sclerosis with lung involvement; J44.0 Chronic obstructive pulmonary disease with (acute) lower respiratory infection; G93.49 Other encephalopathy; I27.20 Pulmonary hypertension, unspecified; E11.9 Type 2 diabetes mellitus without complications; K21.9 Gastro-esophageal reflux disease without esophagitis; E03.9 Hypothyroidism, unspecified; Z99.81 Dependence on supplemental oxygen; Z87.891 Personal history of nicotine dependence; Z79.84 Long term (current) use of oral hypoglycemic drugs
CPT/HCPCS: 36415; 36416; 36600; 70450; 71045; 71275; 80053; 82803; 82962; 83605; 83880; 84145; 84484; 85025; 86140; 87040; 87426; 87635; 87804; 93005; 93306; 93970; 94640; 94660; 96365; 96367; 96372; 99291; J0696; J1100; J1650; J1815; J3490; J7030; J7517; J7626; Q9967

== ENCOUNTER → 2022-01-21 11:29 | Outpatient (BNVA) | payer MEDICARE, MEDICAID, SELFPAY | PROVIDERS: PCP Nurse Practitioner Family; Visit Provider Internal Medicine Pulmonary Disease | DX: I27.20 Pulmonary hypertension, unspecified (principal); G47.33 Obstructive sleep apnea (adult) (pediatric); I26.99 Other pulmonary embolism without acute cor pulmonale; J44.9 Chronic obstructive pulmonary disease, unspecified; J84.89 Other specified interstitial pulmonary diseases; M34.0 Progressive systemic sclerosis; M34.9 Systemic sclerosis, unspecified; M35.9 Systemic involvement of connective tissue, unspecified; Z99.89 Dependence on other enabling machines and devices; Z87.891 Personal history of nicotine dependence | CPT/HCPCS: 99214 ==

== ENCOUNTER → 2022-05-17 12:41 | Outpatient (BNVA) | payer MEDICARE, MEDICAID, SELFPAY | PROVIDERS: PCP Nurse Practitioner Family; Visit Provider Internal Medicine Rheumatology | DX: M34.0 Progressive systemic sclerosis (principal); Z79.899 Other long term (current) drug therapy; R76.0 Raised antibody titer; I27.20 Pulmonary hypertension, unspecified; R90.82 White matter disease, unspecified; Z91.410 Personal history of adult physical and sexual abuse; G43.909 Migraine, unspecified, not intractable, without status migrainosus; Z87.891 Personal history of nicotine dependence; M79.7 Fibromyalgia; F41.9 Anxiety disorder, unspecified; F32.A Depression, unspecified; M48.061 Spinal stenosis, lumbar region without neurogenic claudication; M54.32 Sciatica, left side; Z71.89 Other specified counseling | CPT/HCPCS: 80076; 82565; 85025; 86140; 99214 ==

== ENCOUNTER → 2022-09-07 13:35 | Outpatient (BNVA) | payer MEDICARE, MEDICAID, SELFPAY | PROVIDERS: PCP Nurse Practitioner Family; Visit Provider Internal Medicine Rheumatology | DX: M34.0 Progressive systemic sclerosis (principal); Z79.899 Other long term (current) drug therapy; Z71.89 Other specified counseling; I27.20 Pulmonary hypertension, unspecified; R76.0 Raised antibody titer; R90.82 White matter disease, unspecified; Z91.410 Personal history of adult physical and sexual abuse; G43.909 Migraine, unspecified, not intractable, without status migrainosus; Z87.891 Personal history of nicotine dependence; M79.7 Fibromyalgia; F41.9 Anxiety disorder, unspecified; F32.A Depression, unspecified; M48.061 Spinal stenosis, lumbar region without neurogenic claudication; M54.32 Sciatica, left side | CPT/HCPCS: 36415; 80076; 82565; 85025; 86140; 99214 ==

== ENCOUNTER → 2022-12-20 13:55 | Outpatient (BNVA) | payer MEDICARE, MEDICAID, SELFPAY | PROVIDERS: PCP Nurse Practitioner Family; Visit Provider Internal Medicine Rheumatology | DX: M34.0 Progressive systemic sclerosis (principal); Z79.899 Other long term (current) drug therapy; Z71.89 Other specified counseling; I27.20 Pulmonary hypertension, unspecified; I78.1 Nevus, non-neoplastic; K22.9 Disease of esophagus, unspecified; K21.9 Gastro-esophageal reflux disease without esophagitis; M79.7 Fibromyalgia; M41.56 Other secondary scoliosis, lumbar region | CPT/HCPCS: 99214 ==

== ENCOUNTER 2022-12-28 13:31 | Outpatient (CLI) | payer MEDICARE, MEDICAID, SELFPAY ==
--- NOTE | 2022-12-28 13:37 | XR_ITS ---
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 FINDINGS: The L1-L4 bone mineral density measures 1.472 g/cm2. This corresponds to a T score score of 2.4 and Z score of 3.6. Left femoral neck bone mineral density measures 0.994 g/cm2. This corresponds to a T score of -0.1 an d Z score of 0.8. Right femoral neck bone mineral density measures 0.975 g/cm2. This corresponds to a T score -0.3of an d Z score of 0.6. Mean femoral neck bone mineral density measures 0.985 g/cm2. This corresponds to a T score of -0.2 an d Z score of 0.7. XR/XR DEXA axial skeleton* [id number] IMPRESSION: Normal bone mineralization. Patient's FRAX calculated 10 year probability for major osteoporotic fracture i s 29.7 % and osteoporotic hip fracture is 2.1%.
== END 2022-12-28 13:32 | disposition home or self-care (01) ==
LOC: RAD 13:31
PROVIDERS: PCP Nurse Practitioner Family; Visit Provider Family Medicine
DX: Z78.0 Asymptomatic menopausal state (principal)
CPT/HCPCS: 77080

== ENCOUNTER 2023-01-25 21:09 | Inpatient (IN) | payer MEDICARE, MEDICAID, SELFPAY ==
[2023-01-25] VITALS (8 sets, daily range): BP systolic 111–128; BP diastolic 70–82; PULSE 84–124; RESP 19–27; TEMP 36.4; O2SAT 50–76; BMI 30.8
--- NOTE | 2023-01-25 21:15 | ECG_ITS ---
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 Measurements Intervals Neche Rate: 104 P: 163 MN: 166 QRS: 172 QRSD: 130 T: -17 QT: 389 QTc: 514 Interpretive Statements ECTOPIC ATRIAL TACHYCARDIA WITH OCCASIONAL VENTRICULAR PREMATURE COMPLEXES WITH OCCASIONAL SUPRAVENTRICULAR PREMATURE COMPLEXES POSSIBLE LEFT ATRIAL ENLARGEMENT [-0.1mV P-WAVE IN V1/V2] POSSIBLE RIGHT VENTRICULAR HYPERTROPHY [SOME/ALL OF: PROMINENT R IN V1, LATE TRANSITION, RAD, ESE, SSS] POSSIBLE ANTERIOR MYOCARDIAL INFARCTION , OF INDETERMINATE AGE [30 ms Q WAVE IN V3/V4, OR R < 0.2 mV IN V4] Compared to ECG 11/17/2021 17:57:12 Ventricular premature complex(es) now present Sinus rhythm no longer present Incomplete right bundle-branch block no longer present Electronically Signed On 01-26-2023 8:08:32 CDT by Sim Boyd M.D. [id number]
--- NOTE | 2023-01-25 21:19 | XRR_ITS ---
PROCEDURE INFORMATION: Exam: XR Chest Exam date and time: 01/25/2023 9:27 PM Age: 67 years old Clinical indication: Shortness of breath; Additional info: Dyspnea hypoxia TECHNIQUE: Imaging protocol: Radiologic exam of the chest. Views: 1 view. COMPARISON: CT chest con [id number] 08/31/2021 1:14 PM FINDINGS: Lungs: Unremarkable. No consolidation. Pleural spaces: Unremarkable. No pleural effusion. No pneumothorax. Heart/Mediastinum: Unremarkable. No cardiomegaly. Bones/joints: Unremarkable. XR/XR chest 1V portable [id number] IMPRESSION: No acute findings.
--- NOTE | 2023-01-25 21:22 | ED_ITS ---
HPI - SOB/Dyspnea General: Chief Complaint: Shortness of Breath/Dyspnea Stated Complaint: sob Time Seen by Provider: 01/25/23 21:11 History of Present Illness: HPI Narrative: Patient isPatient presents to the ER by EMS with complaints of shortness of breath on exertion and when lying down. Oxygen normally but has increased that during the last week because of dyspnea. Patient states she is normally on 3 to 4 L of oxygen continuously. MD elicited complaint: shortness of breath Pertinent past history: COPD Onset (ago): week(s) (Jia days to a week ago) Context: other (Multiple sick people in the household) Timing: constant and progressively worsening Severity: mild Exacerbating factors: lying flat and exertion Relieving factors: oxygen and bronchodilators Known history of: COPD and congestive heart failure Associated symptoms: Reports orthopnea; Deny abdominal pain, chest pain, fever(s), nausea, palpitations, polydipsia, polyuria or vomiting Treatment prior to arrival: none Review of Systems 2 General: Reports: 10 or more systems reviewed and unremarkable except in HPI and below Const: Reports: chills; Denies: fever(s) Eyes: Denies: change in vision ENMT: Denies: throat pain or odynophagia Card: Reports: dyspnea on exertion and orthopnea; Denies: chest pain or palpitations Resp: Reports: dyspnea GI: Denies: abdominal pain, nausea, vomiting or diarrhea : Denies: flank pain or dysuria Musc: Denies: neck pain or back pain Skin/Breast: Denies: rash or pruritus Neuro: Denies: headache(s), numbness in extremities or weakness in extremities Psych: Denies: anxiety or depression Endo: Denies: polyuria, polydipsia or tired all the time All/Imm: Denies: urticaria or throat swelling PFSH ED PFSH: Medical History Chronic diarrhea COPD (chronic obstructive pulmonary disease) Diabetes mellitus Fibromyalgia GERD (gastroesophageal reflux disease) Hypothyroidism Pulmonary hypertension Scleroderma Systemic sclerosis with limited cutaneous involvement Surgical History H/O section H/O esophagogastroduodenoscopy (~06/17/20) With balloon dilation History of hysterectomy Status post colonoscopy Family History Other Arthritis Diabetes Heart disease Denies family history of Rheumatoid arthritis Lupus Anesthesia complication Bleeding disorder Social History Smoking and tobacco status: never smoked Quit status (tobacco): has quit using tobacco Year quit tobacco: 2019 Former quit date comment: Hx of 2PPD x 10 Years Second hand smoke exposure: No Smoking risk assessment/counseling performed?: No Alcohol intake: never Counseling given: No Counseling given: No Lives independently: Yes Household members: friend(s) Marital status: / Current occupational status: disabled Pets and animals: Yes Current gender identity: Female Physical Exam Const: COMMON NORMALS: no acute distress, average body habitus, patient oriented x3, no limitations, alert and well nourished HENMT: COMMON NORMALS: normocephalic, atraumatic, hearing grossly normal bilaterally, external ears normal, Normal external nose present and moist oral mucous membranes HEAD & SCALP: normocephalic and atraumatic NOSE: Normal external nose present EXTERNAL EAR: Yes external ears normal Eye: COMMON NORMALS: Equal, round and reactive pupils present, EOMs intact bilaterally, conjunctivae normal and no scleral icterus CONJUNCTIVA: Yes conjunctivae normal PUPIL: Yes Equal, round and reactive pupils present Neck/C-Spine: COMMON NORMALS: full ROM, no lymphadenopathy, supple, no JVD and Thyroid normal THYROID: Thyroid normal Chest: COMMONS NORMALS: normal inspection of the chest and normal palpation of entire chest wall Resp: COMMON NORMALS: normal respiratory effort, No retractions and No use of accessory muscles AUSCULTATION: diminished lung sounds Cardio: COMMON NORMALS: no JVD, regular rate, regular rhythm, S1 normal heart sound present and S2 normal heart sound present RATE: regular rate RHYTHM: regular rhythm HEART SOUNDS: S1 normal heart sound present and S2 normal heart sound present GI: COMMON NORMALS: Normal to inspection, nondistended, normoactive bowel sounds present, Soft to palpation, non-tender, No hepatosplenomegaly present and no masses PALPATION: Yes Soft to palpation and Yes No hepatosplenomegaly present Back/Pelvis: COMMON NORMALS: thoracic and lumbar spine normal to inspection Extremity: NARRATIVE EXTREMITY EXAM: Tight skin consistent with scleroderma, trace pitting edema bilateral lower extremities Neuro: COMMON NORMALS: patient oriented x3, CN's II-XII intact bilaterally, moves all extremities, no focal motor deficits and no sensory deficits noted SENSORIUM/ORIENTATION: Yes alert Psych: COMMON NORMALS: mental status grossly normal, Normal thought process present, cooperative, normal affect and speech normal SPEECH: Yes normal speech THOUGHT PROCESS: Normal thought process present Course Vital Signs: Vital signs: Vital Signs Temperature 97.5 F L 01/25/23 21:10 Pulse Rate 106 H 01/25/23 22:15 Respiratory Rate 26 H 01/25/23 22:15 Blood Pressure 120/82 01/25/23 22:15 Pulse Oximetry 70 L 01/25/23 22:15 Oxygen Delivery Me thod 01/25/23 21:40 Oxygen Flow Rate 8 01/25/23 21:40 MDM - SOB/Dyspnea Medical Decision Making Patient presents to the ER with complaints of worsening shortness of breath over the last several days to last week. Patient has history of COPD and is on 4 L of oxygen continuously. Patient also has scleroderma making getting her pulse ox challenging. Patient denies any nausea vomiting diarrhea chest pain. Upon arrival patient's O2 sat was 40% on 4 L per nasal cannula ABG was obtained which was consistent with this. Patient was put on oxy mask at 8 L which raised her O2 sat up to the 80s. During this patient's heart rate went from 80-1 40, got erratic and in 2 A-fib with RVR type pattern patient was given 10 mg of Cardizem IV push which lowered her heart rate down in the 80s. Blood pressure remained stable at 117/73. Chest x-ray was read by radiologist as negative. Lab work was obtained which showed patient's calcium was low at 8.1 her lactic acid was high at 3.7, her white count was normal. Her BNP was over 32,000 when in the past it had been 4000. These findings was discussed with the patient as well as with Dr. Espinoza and we were in agreements that patient should be admitted for further evaluation and treatment. Differential Diagnosis Likely acute exacerbation of chronic obstructive airways disease and asthma with exacerbation; Unlikely congestive heart failure, community acquired pneumonia or pulmonary embolism Medical Records I reviewed the patient's medical records. Lab Data I reviewed the patient's lab results. 01/25/23 21:25 01/25/23 21:25 Labs/Radiology: Radiology Impressions Chest X-Ray 01/25/23 21:19 IMPRESSION: No acute findings. Laboratory Results WBC 6.0 10^3/uL (4.0-10.0) 01/25/23 21: RBC 4.86 10^6/uL (4.1-5.3) 01/25/23 21: Hgb 12.6 g/dL (11.5-15.3) 01/25/23 21: Hct 42.4 % (37.0-47.0) 01/25/23 21: MCV 87.2 fl (81-99) 01/25/23 21: MCH 25.9 pg (28.0-34.0) L 01/25/23 21: MCHC 29.7 g/dL (30.0-36.0) L 01/25/23 21: RDW 17.5 % (12.1-15.1) H 01/25/23: Plt Count 143 10^3/cmm (130-400) 01/25/23 21: MPV 9.5 fL (7.4-10.4) 01/25/23 21: Neut % (Auto) 77.2 % 01/25/23 21: Lymph % (Auto) 12.7 % 01/25/23 21: [place] % (Auto) 6.5 % 01/25/23: Eos % (Auto) 2.8 % 01/25/23: Baso % (Auto) 0.3 % 01/25/23: Neut # (Auto) 4.60 10^3/uL (1.8-7.7) 01/25/23 21: Lymph # (Auto) 0.8 10^3/uL (0.8-4.8) 01/25/23: [place] # (Auto) 0.4 10^3/uL (0.2-0.9) 01/25/23 21: Eos # (Auto) 0.2 10^3/uL (0.0-0.8) 01/25/23 21: Baso # (Auto) 0.0 10^3/uL (0.0-0.1) 01/25/23 21: Nucleated RBC % (auto) 0.5 % 01/25/23 21:25 Nucleated RBCs # 0.0 /100WBC 01/25/23 21:25 Specimen Type Arterial 01/25/23 21:50 Sample Site Radial, right 01/25/23 21:50 ABG pH 7.39 (7.35-7.45) 01/25/23 21:50 ABG pCO2 40.4 mmHg (35-45) 01/25/23 21:50 ABG pO2 34.3 mmHg (80.0-100.0) L* 01/25/23 21:50 ABG HCO3 24.2 mmol/L (22-26) 01/25/23 21:50 ABG Base Excess -0.8 mmol/L (-2.0-2.0) 01/25/23 21:50 Evangelist Test Pos 01/25/23 21:50 Hematocrit 40.5 % (37-47) 01/25/23 21:50 Hgb O2 Saturation 54.9 % (95-100) L 01/25/23 21:50 Carboxyhemoglobin 1.3 %THgb (0.4-20.1) 01/25/23 21:50 Methemoglobin 0.8 % (0.4-1.5) 01/25/23 21:50 Total Hemoglobin 13.2 g/dL (12-16) 01/25/23 21:50 O2 Delivery Device Nc 01/25/23 21:50 Delivery Associate ID Reanna 01/25/23 21:50 Sodium 135 mmol/L (136-145) L 01/25/23 21:25 Potassium 4.1 mmol/L (3.5-5.1) 01/25/23 21:25 Chloride 101 mmol/L (98-107) 01/25/23 21:25 Carbon Dioxide 21 mmol/L (22-29) L 01/25/23 21:25 Anion Gap 17.1 (5-19) 01/25/23 21:25 BUN 7 mg/dL (8-23) L 01/25/23 21:25 Creatinine 0.6 mg/dL (0.5-0.9) 01/25/23 21:25 GFR Calculation 100.3 mL/min (90-130) 01/25/23 21:25 Glucose 115 mg/dL (65-115) 01/25/23 21:25 Calculated Osmolality 279 mOsm/kg (285-295) L 01/25/23 21:25 Lactic Acid 3.7 mmol/L (0.5-2.2) H 01/25/23 21:25 Calcium 8.1 mg/dL (8.5-10.5) L 01/25/23 21:25 Magnesium 1.8 mg/dL (1.7-2.3) 01/25/23 21:25 Total Bilirubin 0.6 mg/dL (0.15-1.2) 01/25/23 21:25 AST 17 U/L (0-32) 01/25/23 21:25 ALT 8 U/L (0-33) 01/25/23 21:25 Alkaline Phosphatase 105 U/L (35-105) 01/25/23 21:25 Troponin T Gen 5 ng/L 29 ng/L (0-10) H 01/25/23 21:25 NT-Pro-B Natriuret Pep 33004 pg/mL (0-125) H 01/25/23 21:25 Total Protein 6.1 g/dL (6.6-8.7) L 01/25/23 21:25 Albumin 3.2 g/dL (3.5-5.2) L 01/25/23 21:25 Globulin 2.9 g/dL (1.3-4.6) 01/25/23 21:25 EKG Data EKG 1: I personally reviewed and interpreted this EKG as follows: EKG Interpretation Date: 01/25/23 EKG interpretation time: 21:12 Prior EKG tracings: not available for review Interpretation: EKG showed ectopic atrial tachycardia with occasional ventricular premature complex, with a ventricular rate of 104 bpm, AL interval 166, QRS duration 130, QTc of 450, possible right ventricular hypertrophy, possible left atrial enlargement, possible anterior GA of indeterminate origin with Q waves in V3 and V4 EKG 2: I personally reviewed and interpreted this EKG as follows: EKG Interpretation Date: 01/25/23 EKG interpretation time: 22:02 Prior EKG tracings: available for review Interpretation: EKG showed A-fib with RVR, ventricular rate of 120 beats a minute, QRS duration 137, QTc of 486, intraventricular conduction delay, possible right ventricular hypertrophy, I am not sure necessarily agree with this as the baseline is very noisy. EKG 3: I personally reviewed and interpreted this EKG as follows: EKG Interpretation Date: 01/25/23 EKG interpretation time: 22:07 Prior EKG tracings: available for review Interpretation: EKG showed sinus tachycardia with occasional supraventricular premature complex, ventricular rate of 121 bpm, AL interval 181, QRS duration of 129, QTc 433, possible right ventricular hypertrophy, ST deviation moderate T wave abnormality consider anterior ischemia negative T waves in V3 and V4 Discharge Plan Discharge Patient Disposition: Admitted As Inpatient Clinical Impression: Acute exacerbation of chronic obstructive airways disease, Scleroderma, Congestive heart failure, Elevated lactic acid level, Atrial fibrillation with rapid ventricular response Condition: Stable Coding Level of Care Code ED Freight Service Inspector for Yuly Persaud
[2023-01-25 21:31] LABS: Basophils % 0.3 %; Eosinophils # 0.2 10^3/uL (0.0-0.8); Eosinophils % 2.8 %; Hematocrit 42.4 % (37.0-47.0); Hemoglobin 12.6 g/dL (11.5-15.3); Lymphocytes # 0.8 10^3/uL (0.8-4.8); Lymphocytes % 12.7 %; Mean Corpuscular HGB Conc 29.7 g/dL (30.0-36.0); Mean Corpuscular Hemoglobin 25.9 pg (28.0-34.0); Mean Corpuscular Volume 87.2 fl (81-99); Mean Platelet Volume 9.5 fL (7.4-10.4); Monocytes # 0.4 10^3/uL (0.2-0.9); Monocytes % 6.5 %; Neutrophils % 77.2 %; Nucleated Red Blood Cells % 0.5 %; Platelet Count 143 10^3/cmm (130-400); Red Blood Count 4.86 10^6/uL (4.1-5.3); Red Cell Distribution Width 17.5 % (12.1-15.1)
--- NOTE | 2023-01-25 21:32 | PC.NURSE ---
Patient family states she has advanced form of lupus and this affects her O2 reading. Monitor is reading in the 40s on O2, patient appears in no distress for that reading. Dr Ford ordered a ABG to read O2.
[2023-01-25] MEDS: ipratropium 0.5 mg/2.5 mL Neb INHALATION (21:38)
--- NOTE | 2023-01-25 21:53 | ECG_ITS ---
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 Measurements Intervals [place] Rate: 128 P: 0 AK: 0 QRS: 128 QRSD: 137 T: 5 QT: 420 QTc: 615 Interpretive Statements ATRIAL FIBRILLATION WITH RAPID VENTRICULAR RESPONSE INTRAVENTRICULAR CONDUCTION DELAY [130+ ms QRS DURATION] POSSIBLE RIGHT VENTRICULAR HYPERTROPHY [SOME/ALL OF: PROMINENT R IN V1, LATE TRANSITION, RAD, ESE, SSS] Compared to ECG 11/17/2021 17:57:12 Intraventricular conduction delay now present Sinus rhythm no longer present Incomplete right bundle-branch block no longer present Electronically Signed On 01-26-2023 8:07:56 CDT by Sim Boyd M.D. [email or web address]
[2023-01-25 21:54] LABS: ABG PCO2 40.4 mmHg (35-45); ABG PH Result 7.39 (7.35-7.45); Arterial Blood Gas Hematocrit 40.5 % (37-47); Base Excess ABG -0.8 mmol/L (-2.0-2.0); Blood Gas Allen Test Pos; Blood Gas Sample Site Radial, right; Blood Gas Sample Type Arterial; Carboxyhemoglobin 1.3 %THgb (0.4-20.1); HCO3 ABG 24.2 mmol/L (22-26); HGB O2 Sat 54.9 % (95-100); Methemoglobin 0.8 % (0.4-1.5); Oxygen Device NC; PO2 ABG 34.3 mmHg (80.0-100.0); Total Hemoglobin 13.2 g/dL (12-16)
[2023-01-25 21:58] LABS: Lactic Sepsis W/Reflex 3.7 mmol/L (0.5-2.2)
[2023-01-25 22:06] LABS: Alanine Aminotransferase 8 U/L (0-33); Albumin Level 3.2 g/dL (3.5-5.2); Alkaline Phosphatase 105 U/L (35-105); Blood Urea Nitrogen 7 mg/dL (8-23); Calcium 8.1 mg/dL (8.5-10.5); Carbon Dioxide 21 mmol/L (22-29); Chloride 101 mmol/L (98-107); Globulin 2.9 g/dL (1.3-4.6); Glomerular Filtration Rate 100.3 mL/min (90-130); Glucose 115 mg/dL (65-115); Magnesium 1.8 mg/dL (1.7-2.3); Osmolality Calculated 279 mOsm/kg (285-295); Sodium 135 mmol/L (136-145); Total Bilirubin 0.6 mg/dL (0.15-1.2); Total Protein 6.1 g/dL (6.6-8.7)
[2023-01-25 22:08] LABS: Anion Gap 17.1 (5-19); Potassium 4.1 mmol/L (3.5-5.1)
[2023-01-25 22:09] LABS: Aspartate Amino Transferase 17 U/L (0-32)
[2023-01-25] MEDS: dilTIAZem 5 mg/mL SDV 5 mL 10 MG IVP (22:16)
[2023-01-25 22:27] LABS: Troponin T (5th) Once 29 ng/L (0-10)
--- NOTE | 2023-01-25 23:03 | PM.HP ---
Providers/Chief Complaint Primary Care Provider: Consuelo Peacock Chief Complaint: sob History of Present Illness Kathy Ordonez is a 67 year old female patient of Dr. Chavezr has history of pulmonary hypertension, 3.5 to 4 L oxygen dependent at home, history of COVID-19 infection, PE, chronic anticoagulation for PE has seen pulmonary hypertension clinic at [facility], she has history of diastolic dysfunction, carries history of moderate to severe pulm hypertension, JAE, scleroderma, presenting to the hospital for worsening of shortness of breath. Patient is stating that for last 2 to 3 days she has been experiencing dry cough, runny nose, and last 24 hours she was given prednisone 20 mg along with Augmentin however after taking that medication her symptoms got worse she was very hypoxic and cyanotic that prompted her visit to the ER. She was saturating in low 50s at the time of my evaluation on oxy mask and a liter oxygen I asked RT to put her on BiPAP which improved her O2 saturation to 90% she was given IV fluids for consideration of possible sepsis however chest x-ray is unremarkable her high lactic acid is most likely due to increased work of breathing. She is afebrile. She will be full code, transfer to ICU daughter at the bedside, daughter helped me to get most of the information. Patient has not experienced any chest pain, nausea, vomiting, patient had quit smoking In the ER she was given 1 L normal saline, for intermittent A-fib RVR she was given diltiazem 10 mg IV push, I have given her Lasix 20 mg start IV fluid Review of Systems Const: Reports: chills, body aches and fatigue; Denies: fever(s) Eyes: Denies: change in vision ENMT: Denies: throat pain Card: Reports: swelling of feet/ankles, dyspnea on exertion and orthopnea; Denies: chest pain Resp: Reports: dyspnea GI: Denies: abdominal pain : Denies: flank pain Musc: Denies: neck pain Skin/Breast: Denies: rash Neuro: Denies: headache(s) Psych: Reports: anxiety Medications/Allergies Home Medications Medication Instructions Recorded Confirmed Last Taken Type aripiprazole 5 mg tablet (Abilify) 5 mg PO BEDTIME 12/13/19 12/20/22 06/16/20 History citalopram 40 mg tablet (Celexa) 40 mg PO DAILY 12/13/19 12/20/22 06/16/20 History dexlansoprazole 60 mg 60 mg PO DAILY 12/13/19 12/20/22 06/16/20 History capsule,biphase delayed release (Dexilant) hydrocodone 10 mg-acetaminophen 1 - 2 tab PO Q4H PRN Pain 12/13/19 12/20/22 06/16/20 History 325 mg tablet levothyroxine 112 mcg tablet 112 mcg PO DAILY 12/13/19 12/20/22 06/16/20 History (Synthroid) albuterol sulfate 90 mcg/actuation 2 puff inhalation Q6H PRN 03/24/21 12/20/22 Unknown Rx aerosol inhaler (Ventolin HFA) shortness of breath #8.5 grams umeclidinium 62.5 mcg/actuation 1 inh inhalation DAILY #30 ea 03/24/21 12/20/22 Unknown Rx blister powder for inhalation (Incruse Ellipta) amlodipine 10 mg tablet 10 mg PO DAILY 11/17/21 12/20/22 Unknown History ergocalciferol (vitamin D2) 1,250 See Rx Instructions .Route .COMPLEX 11/17/21 12/20/22 Unknown History mcg (50,000 unit) capsule furosemide 20 mg tablet (Lasix) 20 mg PO DAILY pt states still 11/17/21 12/20/22 Unknown History [facility] last [facility] 07/28/21 14d/s guaifenesin 600 mg tablet, 600 mg PO BID ext med history 11/17/21 12/20/22 Unknown History extended release 12 hr (Mucinex) shows last filled 09/29/21 10d/s ondansetron 4 mg disintegrating 4 mg PO TID PRN Nausea And Vomiting 11/17/21 12/20/22 Unknown History tablet potassium chloride 20 mEq 20 meq PO DAILY pt states still 11/17/21 12/20/22 Unknown History tablet,extended release [facility] last [facility] 07/28/21 14d/s rosuvastatin 10 mg tablet 10 mg PO BEDTIME 11/17/21 12/20/22 Unknown History selexipag 200 mcg tablet (Uptravi) 200 mcg PO BID DIRECTED 11/17/21 12/20/22 Unknown History tolterodine 4 mg capsule,extended 4 mg PO DAILY 11/17/21 12/20/22 Unknown History release 24 hr trazodone 100 mg tablet 200 mg PO BEDTIME 11/17/21 12/20/22 Unknown History apixaban 5 mg (74 tabs) tablets in See Rx Instructions PO .COMPLEX 11/20/21 12/20/22 Unknown Rx a dose pack (Eliquis DVT-PE Treat #74 ea 30D Start) doxycycline monohydrate 100 mg 100 mg PO BID #10 tabs 11/20/21 12/20/22 Unknown Rx tablet dabigatran etexilate 150 mg 150 mg PO BID 01/21/22 12/20/22 Unknown History capsule (Pradaxa) diclofenac sodium 1 % topical gel 4 g topical QID #100 grams 12/20/22 12/20/22 Unknown Rx hydroxychloroquine 200 mg tablet See Rx Instructions .Route 12/20/22 12/20/22 Unknown Rx .COMPLEX #60 tabs mycophenolate mofetil 500 mg See Rx Instructions PO BID #90 tabs 12/20/22 12/20/22 Unknown Rx tablet (CellCept) prednisone 5 mg tablet See Rx Instructions .Route 12/20/22 12/20/22 Unknown Rx .COMPLEX #90 tabs Allergies Allergy/AdvReac Type Severity Reaction Status Date / Time Sulfa (Sulfonamide Allergy Severe ALGY-Difficulty Verified 01/25/23 22:19 Antibiotics) Breathing bupropion [From Wellbutrin] Allergy Unknown Verified 12/20/22 14:27 pregabalin [From Lyrica] Allergy UNKNOWN Verified 12/20/22 14:27 venlafaxine [From Effexor] Allergy UNKNOWN Verified 12/20/22 14:27 PFSH Acute PFSH: Medical History Chronic diarrhea COPD (chronic obstructive pulmonary disease) Diabetes mellitus Fibromyalgia GERD (gastroesophageal reflux disease) Hypothyroidism Pulmonary hypertension Scleroderma Systemic sclerosis with limited cutaneous involvement Surgical History H/O section H/O esophagogastroduodenoscopy (~06/17/20) With balloon dilation History of hysterectomy Status post colonoscopy Family History Other Arthritis Diabetes Heart disease Denies family history of Rheumatoid arthritis Lupus Anesthesia complication Bleeding disorder Social History Smoking and tobacco status: never smoked Quit status (tobacco): has quit using tobacco Year quit tobacco: 2019 Former quit date comment: Hx of 2PPD x 10 Years Second hand smoke exposure: No Smoking risk assessment/counseling performed?: No Alcohol intake: never Counseling given: No Counseling given: No Lives independently: Yes Household members: friend(s) Marital status: / Current occupational status: disabled Pets and animals: Yes Current gender identity: Female Vitals/I&O/Wt Last Vital Signs Temp 97.5 F L 01/25/23 21:10 Pulse 106 H 01/25/23 22:15 Resp 26 H 01/25/23 22:15 BP 120/82 01/25/23 22:15 Pulse Ox 70 L 01/25/23 22:15 O2 Del Method 01/25/23 21:40 O2 Flow Rate 8 01/25/23 21:40 Weight last 48 hrs Weight 78.925 kg Physical Exam Narrative: Patient is on BiPAP Anticipating Able to follow commands Multiple petechiae extremities No extremity venous stasis dermatitis 1+ edema of legs Mild signs of fluid overload Nonfocal neuro exam Variable S1-S2 Breath sounds with crackles No rhonchi I did not appreciate any wheezing Data 01/25/23 21:25 01/25/23 21:25 Micro: Microbiology 01/25/23 22:30 Blood Culture - Preliminary Blood SPECIMEN COLLECTED 01/25/23 22:32 Blood Culture - Preliminary Blood SPECIMEN COLLECTED A&P Assessment and plan (1) Acute exacerbation of chronic obstructive airways disease: (2) Scleroderma: (3) Congestive heart failure: Qualifiers: Heart failure chronicity: chronic Heart failure type: unspecified Qualified Code(s): I50.9 - Heart failure, unspecified (4) Elevated lactic acid level: (5) Atrial fibrillation with rapid ventricular response: (6) Diabetes mellitus: (7) Acute and chronic respiratory failure: (8) Interstitial lung disease due to connective tissue disease: (9) JAE on CPAP: (10) Systemic sclerosis with limited cutaneous involvement: (11) Pulmonary hypertension: Plan Acute on chronic hypoxia Respiratory failure with conversational dyspnea Currently requiring BiPAP At home uses 3.5 to 4 L Moderate pulm hypertension Follows up with pulmonary hypertension clinic Seeing for Dr. Mora outpatient X-ray unremarkable Will require CTA chest rule out PE For now I will anticoagulate with therapeutic Lovenox She does have history of PE, her Eliquis was switched to Pradaxa Acute diastolic CHF exacerbation We will give her IV Lasix Monitor electrolytes with potassium and magnesium monitoring Discontinue IV fluid Increased work of breathing due to hypoxia and tachypnea No active sign of sepsis or consolidation Lactic acid is most likely due to increased work of breathing at this point BiPAP with decreased work of breathing for tonight She also history of sleep apnea Intermittent A-fib RVR Would use AV kt blocking agent along with therapeutic Lovenox Goals of care discussed multiple times she is full code for now Daughter is at the bedside Daughter helping to take most of the history as patient was very short of breath with conversation History of scleroderma Continue hydroxychloroquine, I would use high-dose steroids for now She also takes mycophenolate and Uptravi Cardiac diet DVT prophylaxis: With therapeutic Lovenox Admit to ICU Attestations Medical Necessity Statement*: More than 2 midnights anticipated Diagnoses Acute exacerbation of chronic obstructive airways disease J44.1 Scleroderma M34.9 Congestive heart failure I50.9 Heart failure chronicity: chronic Heart failure type: unspecified Elevated lactic acid level R79.89 Atrial fibrillation with rapid ventricular response I48.91 Diabetes mellitus E11.9 Acute and chronic respiratory failure J96.20 Interstitial lung disease due to connective tissue disease J84.89; M35.9 JAE on CPAP G47.33; Z99.89 Systemic sclerosis with limited cutaneous involvement M34.0 Pulmonary hypertension I27.20
[2023-01-25] MEDS: sodium chloride 0.9% 1,000 ML 999 ML IV (23:05)
[2023-01-25 23:16] LABS: Reflex Lactate Order REFLEX LACTIC ORDERD
[2023-01-25 23:21] LABS: Adenovirus Not Detected (NOT DETECT); Chlamydia Pneumoniae Not Detected (NOT DETECT); Coronavirus 229E,HKU1,NL63,OC4 Not Detected (NOT DETECT); Human Metapneumovirus Detected (NOT DETECT); Human Rhinovirus/Enterovirus Not Detected (NOT DETECT); Influenza A Not Detected (NOT DETECT); Influenza A H1 Not Detected (NOT DETECT); Influenza A H1-2009 Not Detected (NOT DETECT); Influenza A H3 Not Detected (NOT DETECT); Influenza B Not Detected (NOT DETECT); Mycoplasma Pneumoniae Not Detected (NOT DETECT); Parainfluenza Virus Type 1 Not Detected (NOT DETECT); Parainfluenza Virus Type 2 Not Detected (NOT DETECT); Parainfluenza Virus Type 3 Not Detected (NOT DETECT); Parainfluenza Virus Type 4 Not Detected (NOT DETECT); Respiratory Syncytial Virus A Not Detected (NOT DETECT); Respiratory Syncytial Virus B Not Detected (NOT DETECT); SARS-COV-2 Not Detected (NOT DETECT)
[2023-01-25 23:34] LABS: Lactic Acid level (Lactate) 2.9 mmol/L (0.5-2.2)
[2023-01-25 23:41] LABS: Results from Genmark
[2023-01-25 23:43] LABS: Procalcitonin 0.05 ng/mL (0-0.5)
[2023-01-26] VITALS (112 sets, daily range): BP systolic 118–150; BP diastolic 72–109; PULSE 69–132; RESP 16–32; TEMP 36.4–36.6; O2SAT 82–100; BMI 29.8
[2023-01-26] MEDS: ipratropium-albuterol 3 mL Neb INHALATION ×4 (00:26→19:53)
[2023-01-26] MEDS: FUROsemide 10 mg/mL SDV 2mL 20 MG IVP (00:35)
--- NOTE | 2023-01-26 01:00 | PC.NURSE ---
Lasix/Francois Upon patient assessment, crackles and wheezing heard in patient's lungs, edema noted in bilateral legs, and patient's oxygen saturation maintaining in mid-upper 80s while on bipap at 100% FIO2. Dr. Espinoza notified of findings and orders received for 20 mg lasix IVP once as well as for a francois catheter insertion.
[2023-01-26] MEDS: enoxaparin 80 mg/0.8 mL Syringe SUBCUT ×2 (01:30→13:07)
[2023-01-26] MEDS: hydroxychloroquine 200 mg Tablet PO ×2 (01:30→13:07)
[2023-01-26 01:56] LABS: Add Urine Microscopic? NO; Charge for UA Resulting for Rev
[2023-01-26 02:04] LABS: Bilirubin Urine Neg (Negative); Blood Urine Neg (Negative); Glucose Urine UA Norm (Normal); Ketones Urine Negative (Negative); Leukocyte Esterase Urine Negative (Negative); Nitrate Urine Negative (Negative); Protein Urine Neg (Negative); Specific Gravity, Urine 1.005 (1.005-1.030); Urine Appearance Clear (CLEAR); Urine Color Colorless (Yellow); Urobilinogen Urine Neg (Negative); pH Urine 6.5 (5-7)
[2023-01-26 04:20] LABS: Basophils % 0.2 %; Hematocrit 45.8 % (37.0-47.0); Hemoglobin 13.4 g/dL (11.5-15.3); Lymphocytes # 0.3 10^3/uL (0.8-4.8); Lymphocytes % 6.1 %; Mean Corpuscular HGB Conc 29.3 g/dL (30.0-36.0); Mean Corpuscular Hemoglobin 25.3 pg (28.0-34.0); Mean Corpuscular Volume 86.6 fl (81-99); Mean Platelet Volume 9.3 fL (7.4-10.4); Monocytes # 0.3 10^3/uL (0.2-0.9); Monocytes % 4.8 %; Neutrophils # 4.92 10^3/uL (1.8-7.7); Neutrophils % 88.4 %; Nucleated Red Blood Cells % 0 %; Platelet Count 166 10^3/cmm (130-400); Red Blood Count 5.29 10^6/uL (4.1-5.3); Red Cell Distribution Width 17.2 % (12.1-15.1); White Blood Count 5.6 10^3/uL (4.0-10.0)
--- NOTE | 2023-01-26 04:35 | PC.NURSE ---
Hydrocodone Patient complaining of back pain; 15 mg PO morphine offered to which patient declined. Patient requested home dose of hydrocodone. Dr. Espinoza contacted and order received to restart home dose of hydrocodone 10-325. See MAR for details.
[2023-01-26 04:40] LABS: Anion Gap 17.3 (5-19); Blood Urea Nitrogen 7 mg/dL (8-23); C Reactive Protein 20.9 mg/L (0.0-4.9); Calcium 8.3 mg/dL (8.5-10.5); Carbon Dioxide 23 mmol/L (22-29); Chloride 101 mmol/L (98-107); Glomerular Filtration Rate 123.8 mL/min (90-130); Glucose 92 mg/dL (65-115); Magnesium 1.8 mg/dL (1.7-2.3); Osmolality Calculated 282 mOsm/kg (285-295); Potassium 4.3 mmol/L (3.5-5.1); Sodium 137 mmol/L (136-145)
[2023-01-26] MEDS: HYDROcodone-acetaminophen 10-325 mg Tablet PO ×2 (05:07→11:11)
[2023-01-26] MEDS: levothyroxine 112 mcg Tablet PO (05:33)
[2023-01-26] MEDS: FUROsemide 20 mg Tablet PO (08:41)
[2023-01-26] MEDS: guaiFENesin 600 mg Tablet PO ×2 (08:41→18:21)
[2023-01-26] MEDS: metoprolol tartrate 50 mg Tablet PO ×2 (08:41→18:22)
--- NOTE | 2023-01-26 13:46 | CTR_ITS ---
PROCEDURE INFORMATION: Exam: CTA Chest With Contrast Exam date and time: 01/26/2023 4:48 PM Age: 67 years old Clinical indication: Dyspnea and other: Eval pe; Additional info: Evaluate for pe TECHNIQUE: Imaging protocol: Computed tomographic angiography of the chest with contrast. 3D rendering (Not supervised by radiologist): MIP and/or 3D reconstructed images were created by the technologist. Radiation optimization: All CT scans at this facility use at least one of these dose optimization techniques: automated exposure control; mA and/or kV adjustment per patient size (includes targeted exams where dose is matched to clinical indication); or iterative reconstruction. Contrast material: OMNI; Contrast volume: 100 ml; Contrast route: INTRAVENOUS (IV); REPORTING DATA: Count of CT and Cardiac NM exams in prior 12 months: This patient has received 0 known CTs and 0 known cardiac nuclear medicine studies in the 12 months prior to the current study. COMPARISON: CT angio chest PE protcl [id number] 11/17/2021 4:07 PM RADIATION DOSE METRICS: Total DLP (mGy-cm): 464.65 FINDINGS: Pulmonary arteries: There is extensive admixture artifact from contrast-enhanced blood and nonenhanced blood making evaluation for a true filling defect nondiagnostic. Aorta: No aortic aneurysm. Lungs: Scattered clustered micro nodules and ground-glass opacities noted within the posterior lungs. No masses. Pleural spaces: No pneumothorax. No pleural effusion. Heart: No cardiomegaly. Trace pericardial fluid. Mediastinal space: Fluid-filled esophagus noted mid and distal esophagus noted. Lymph nodes: No enlarged lymph nodes. Bones/joints: No acute fracture. Soft tissues: Unremarkable. CT/CT angio chest PE protcl [id number] IMPRESSION: 1. Evaluation for pulmonary embolism is nondiagnostic given admixture artifact on exam. 2. Scattered clustered micro nodules and ground-glass opacities noted within the posterior lung suggestive of small airway infectious or inflammatory process or aspiration given the fluid-filled esophagus.
--- NOTE | 2023-01-26 13:50 | USCV_ITS ---
Kathy Ordonez Age: 67 Gender: F : 1955 Exam Date: 01/26/2023 15:23 Ordering Phys: Monie Wilks MD Technologist: CT [place] [facility] [place]: COPD, CHF, respiratory failure BP: 135 / 86 HR: 88 Rhythm: Sinus Technical Quality: Very technically difficult study MEASUREMENTS (Male / Female) Normal Values 2D ECHO LV Diastolic Diameter PLAX 3.2 cm 4.2 - 5.9 / 3.9 - 5.3 cm LV Systolic Diameter PLAX 2.6 cm IVS Diastolic Thickness 1.2 cm 0.6 - 1.0 / 0.6 - 0.9 cm IVS Systolic Thickness 1.3 cm LVPW Diastolic Thickness 1.5 cm 0.6 - 1.0 / 0.6 - 0.9 cm LVPW Systolic Thickness 1.4 cm LVOT Diameter 2.0 cm LV Ejection Fraction 2D Teich 50.7 % LA Diameter 3.1 cm LA Width 2.2 cm LA Height 4.6 cm RA Width 2.8 cm RA Height 4.2 cm Aorta at Sinotubular Diameter 2.3 cm IVC Diameter 2.7 cm M-MODE MV E Point Septal Separation 1.1 cm DOPPLER TR Peak Velocity 332.0 cm/s TR Peak Gradient 44.1 mmHg Right Atrial Pressure 8.0 mmHg Pulmonary Artery Systolic Pressu 52.1 mmHg RV Acceleration Time 0.1 s RV Ejection Time 0.3 s RV AcT/ET 0.2 FINDINGS Left Ventricle Technically limited quality echocardiogram because of poor ultrasonic windows. Grossly LV systolic function is mildly reduced. Regional wall motion abnormalities cannot accurately be assessed because of poor windows. Right Ventricle Grossly dilated and hypokinetic Right Atrium Grossly normal Left Atrium Normal in size Mitral Valve Grossly calcified Aortic Valve Not well visualized Tricuspid Valve Mild tricuspid regurgitation. RVSP is 55-60mmHg. This is consistent with moderate pulmonary hypertension Pulmonic Valve Not visualized Pericardium Not well visualized Aorta Normal in size. IVC Appears to be dilated CONCLUSIONS Technically limited quality echocardiogram because of poor ultrasonic windows Grossly LV systolic function is mildly reduced RV is dilated and hypokinetic Mild tricuspid regurgitation Moderate pulmonary hypertension Accurate comparison with prior studies not possible because of poor visualization Sim Boyd MD (Electronically Signed) Final Date: 27 January 2023 07:19 S
[2023-01-26] MEDS: FUROsemide 10 mg/mL SDV 4mL 40 MG IVP (15:00)
--- NOTE | 2023-01-26 15:12 | PC.SLP ---
Orders received, chart reviewed. Patient is unable to be assessed at this time due to her need for constant respiratory support through her bipap. Will attempt to assess patient 01/27/23.
[2023-01-26] MEDS: iohexol 350 mg/mL 500 mL Btl (per mL) IV (16:56)
[2023-01-26] MEDS: perflutren protein-a microsphr 0.22 mg/mL SDV 3 mL IV (17:01)
--- NOTE | 2023-01-26 17:36 | P.PN_ITS ---
Subjective Subjective: Overnight labs and H&P reviewed. Currently on 70% FiO2 at 60 L/min. . Continues to have dyspnea, denies chest pain Contineus to have dyspnea, denies chest pain Medications: Reviewed: Yes Vitals/I&O/Wt Last Vital Signs Temp 97.5 F L 01/26/23 06:11 Pulse 78 01/26/23 17:22 Resp 23 H 01/26/23 16:00 BP 123/81 01/26/23 16:00 Pulse Ox 95 01/26/23 17:22 O2 Del Method 01/26/23 07:25 O2 Flow Rate 70 01/26/23 05:45 FiO2 60 01/26/23 17:22 01/26/23 01/26/23 01/26/23 06:59 14:59 22:59 Intake Total 832.5 / 832.5 Output Total 1850 / 1850 500 / 500 1600 / 2100 Balance -1017.5 / -1017.5 -500 / -500 -1600 / -2100 Weight last 48 hrs Weight 76.43 kg Weight 78.925 kg Physical Exam Narrative: General: No acute distress, AO x3 HEENT: PERRLA, pupils bilaterally equal and reactive, pallors not present Chest: Normal vesicular breath sounds, no added sounds, equal good air entry bilaterally CVS: S1-S2 regular, no murmurs, no tachycardia, no gallops, no rubs Abdomen: Soft, nontender, no organomegaly, bowel sounds present Neuro: No focal deficits, no facial deformity, AO x3, power 5/5 in all limbs Urinary Catheter Management: Del Toro: Cath Placed During This Visit: yes Reason for Continuing Indwelling Catheter: Accurate Measurement of Urinary Output in Critically Ill Patients Urinary Catheter Date of Insertion: 01/26/23 Urinary Catheter Time of Insertion: 01:00 Data 01/26/23 03:26 01/26/23 03:26 Micro: Microbiology 01/26/23 01:37 Bacterial Antigens - Final Urine,Clean Catch 01/25/23 22:30 Blood Culture - Preliminary Blood SPECIMEN COLLECTED 01/25/23 22:32 Blood Culture - Preliminary Blood SPECIMEN COLLECTED A&P Assessment and plan (1) Acute exacerbation of chronic obstructive airways disease: (2) Scleroderma: (3) Congestive heart failure: Qualifiers: Heart failure chronicity: chronic Heart failure type: unspecified Qualified Code(s): I50.9 - Heart failure, unspecified (4) Elevated lactic acid level: (5) Atrial fibrillation with rapid ventricular response: (6) Diabetes mellitus: (7) Acute and chronic respiratory failure: (8) Interstitial lung disease due to connective tissue disease: (9) JAE on CPAP: (10) Systemic sclerosis with limited cutaneous involvement: (11) Pulmonary hypertension: Plan 67 F with PMH scleroderma on HCQS, MMF, moderate to severe pulmonary hypertension on selexipag, JAE, chronic smoker presenting with cough, dyspnea, acute on chronic hypoxic repisratory failure # Acute on chronic hypoxic resp failure Multifactorial related to acute viral function with human metapneumovirus pneu monitis and pulmonary hypertension Required Bipap ventilation upon arrival Typically on 3-4lpm at home, currently on HHF 60% fi02 at 70lpm CTA chest ordered this afternoon ?Evaluation for pulmonary embolism is nondiagnostic given admixture artifact on exam. Scattered clustered micro nodules and ground-glass opacities noted within the posterior lung suggestive of small airway infectious or inflammatory process or aspiration. Continue lovenox 1mg/kg sc q12h # Moderate pulmonary hypertension Follows up with pulmonary hypertension clinic Start lasix 40mg ivp q12h Closely monitor her DESTINEE's Highly likely that pulmonary hypertension is contributing to her symptoms curr ently BNP is elevated at 32,000, concern for right heart failure. Check echocardiogram #Concern for aspiration pneumonia. Start piperacillin/tazobactam empirically. Check sputum culture and Gram stain, MRSA PCR Check swallow evaluation Patient has a h/o esophageal dilatation # Intermittent A-fib RVR Currently rate controlled # History of scleroderma Continue hydroxychloroquine reduce steroid to methylprednisone 40mg iv daily She also takes mycophenolate and Uptravi which are currently on hold clear liquid diet until swallow eval completed DVT prophylaxis: With therapeutic Lovenox Attestations Medical Necessity Statement*: needs continued ICU care given high 02 requirements, high risk of decompensation, start iv diuresis Coding Level of Care Code Critical Care >/= 30 minutes Diagnoses Acute exacerbation of chronic obstructive airways disease J44.1 Scleroderma M34.9 Congestive heart failure I50.9 Heart failure chronicity: chronic Heart failure type: unspecified Elevated lactic acid level R79.89 Atrial fibrillation with rapid ventricular response I48.91 Diabetes mellitus E11.9 Acute and chronic respiratory failure J96.20 Interstitial lung disease due to connective tissue disease J84.89; M35.9 JAE on CPAP G47.33; Z99.89 Systemic sclerosis with limited cutaneous involvement M34.0 Pulmonary hypertension I27.20
[2023-01-26] MEDS: piperacillin-tazobactam 3.375 GM in sodium chloride 0.9% (plus) 50 ML IV (18:28)
--- NOTE | 2023-01-26 19:04 | PC.NURSE ---
Patient desats after being off bipap for 1 minute but rebounds quickly, Dr. Wilks aware, some po meds held per MAR
[2023-01-26] MEDS: budesonide 0.5 mg/2 mL Neb INHALATION (19:53)
[2023-01-27] VITALS (40 sets, daily range): BP systolic 76–143; BP diastolic 40–101; PULSE 0–113; RESP 13–29; TEMP 36.2–36.4; O2SAT 53–99
[2023-01-27] MEDS: enoxaparin 80 mg/0.8 mL Syringe SUBCUT (01:50)
[2023-01-27] MEDS: FUROsemide 10 mg/mL SDV 4mL 40 MG IVP (01:51)
[2023-01-27] MEDS: piperacillin-tazobactam 3.375 GM in sodium chloride 0.9% (plus) 50 ML IV ×2 (01:51→09:31)
[2023-01-27] MEDS: ipratropium-albuterol 3 mL Neb INHALATION ×2 (02:07→07:48)
[2023-01-27 04:30] LABS: Blood Urea Nitrogen 13 mg/dL (8-23); Calcium 8.3 mg/dL (8.5-10.5); Carbon Dioxide 25 mmol/L (22-29); Chloride 94 mmol/L (98-107); Glucose 91 mg/dL (65-115); Osmolality Calculated 278 mOsm/kg (285-295); Sodium 134 mmol/L (136-145)
[2023-01-27] MEDS: ondansetron 2 mg/ML SDV 2 mL 4 MG IVP (06:55)
[2023-01-27] MEDS: budesonide 0.5 mg/2 mL Neb INHALATION (07:48)
[2023-01-27] MEDS: metoprolol tartrate 50 mg Tablet PO (09:32)
[2023-01-27] MEDS: guaiFENesin 600 mg Tablet PO (09:33)
[2023-01-27] MEDS: HYDROcodone-acetaminophen 10-325 mg Tablet PO (10:32)
[2023-01-27] MEDS: citalopram 20 mg Tablet 40 MG PO (10:51)
[2023-01-27] MEDS: pantoprazole DR 40 mg Tablet PO (11:19)
[2023-01-27] MEDS: hydroxychloroquine 200 mg Tablet PO (11:19)
[2023-01-27 12:25] LABS: ABG PCO2 47.3 mmHg (35-45); Arterial Blood Gas Hematocrit 46.4 % (37-47); Base Excess ABG 3.6 mmol/L (-2.0-2.0); Blood Gas Allen Test Pos; Blood Gas Sample Site Radial, left; HCO3 ABG 29.4 mmol/L (22-26); Oxygen Device BIPAP
[2023-01-27] MEDS: albumin 12.5 GM/250 ML VIAL IV (13:13)
[2023-01-27 13:20] LABS: Blood Gas Operator Identificat CAK; Blood Gas Sample Type Arterial
[2023-01-27 13:22] LABS: PO2 ABG 29.8 mmHg (80.0-100.0)
--- NOTE | 2023-01-27 13:34 | XR_ITS ---
WS: [id number] XR chest 1V portable [id number] REASON FOR EXAM: difficulty breathing FINDINGS: Considerable external artifact overlying the chest. The chest appears unchanged compared to the examination of 01/25/2023. No acute pulmonary parenchymal o r pleural abnormality is identified. Moderate tortuosity and ectasia of the thoracic aorta. Large retrocardiac density density indicating mediastinal mass. XR/XR chest 1V portable [id number] IMPRESSION: No acute pulmonary parenchymal or pleural abnormality. Mediastinal mass which shown to be dilated esophagus/hiatal hernia demonstrated on CT scan of 01/26/2023.
[2023-01-27] MEDS: naloxone 0.4 mg/ml SDV IVP (13:39)
[2023-01-27 13:44] LABS: ABG PH Result 7.39 (7.35-7.45); Arterial Blood Gas Hematocrit 46.1 % (37-47); Base Excess ABG 3.4 mmol/L (-2.0-2.0); Blood Gas Allen Test Pos; Blood Gas Operator Identificat CAK; Blood Gas Sample Site Radial, left; Blood Gas Sample Type Arterial; Carboxyhemoglobin 0.8 %THgb (0.4-20.1); HCO3 ABG 29.4 mmol/L (22-26); HGB O2 Sat 31.6 % (95-100); Ionized Calcium Level - ABG 1.1 mmol/L (1.1-1.4); Oxygen Device BIPAP; Oxygen Saturation ABG 32.2; PO2 ABG 25.5 mmHg (80.0-100.0)
--- NOTE | 2023-01-27 13:58 | XR_ITS ---
WS: [id number] XR chest 1V portable [id number] REASON FOR EXAM: intubation FINDINGS: Patient has been intubated since the examination at 12:45 PM. The endotracheal tube is just within th e origin of the right mainstem bronchus, however however at this time both lungs are fully expanded. A nasogastric tube has been added. The tip is not demonstrated on this examination but it appears mary t the nasogastric tube is looped in the fundus of the stomach. No acute pulmonary parenchymal or pleural abnormality noted. XR/XR chest 1V portable [id number] IMPRESSION: Endotracheal tube position as above. Nasogastric tube position as above. No acute chest abnormality.
[2023-01-27] MEDS: propofol 1,000 MG/100 ML INJ 4.59 MG IV (14:30)
--- NOTE | 2023-01-27 14:43 | PC.NURSE ---
At 1100, Patient is currently on a nasal cannula. Her O2 saturations dropped into the 70's without any aggravating factors. Patient does not appear to be in distress, besides o2 saturations, vital are within normal limits. Patient is alert to person, place, time, and situation. O2 saturation probe has a poor wave form. Nurse hooked patient back up to Bipap. ALerted RT and Dr landaverde. Oxygen saturations have start to improve.
--- NOTE | 2023-01-27 14:48 | PC.NURSE ---
SHortly after 12 noon, patient's saurations have dropped into the 40's and 50's. No apparant aggravating factors. WAve form is poor and patient is alert to person, place, time, and situation. patient is on 100% bipap. Nurse alerted Dr landaverde. REcieved orders for a blood gas to verify oxygen status.
--- NOTE | 2023-01-27 15:00 | PM.CCNAC ---
Critical Care Event Note The high probability of a clinically significant, sudden or life threatening deterioration of the patient's [] system(s) required my full and direct attention, intervention and personal management. The critical care time is as shown. This time is in addition to time spent performing any reported procedures but includes the following: [x] Data and vital sign review and interpretation [x] Patient assessment, examination and intervention [x] Documentation [x] Medication orders and management Critical Care Time Code activated: Yes Critical Care Time (min): 75 Additional information about critical care time: Patient had deterioration in her respiratory status this afternoon. ABG was performed which showed 7. 3 9/25.5 PO2/29.4 bicarb/49 PCO2. O2 sats noted to be between 33 to 50%. This ABG is on 100% FiO2 on BiPAP with maximal support. Discussed with patient that at this point the neck step would be mechanical ventilation and endotracheal intubation. Patient agreed for the same. Patient was intubated by ER physician. Chest x-ray confirmed position. At 1408, patient started to become bradycardic and eventually developed PEA. CPR was initiated and continued for 22 minutes. Patient received epinephrine, atropine, normal saline bolus while already being on pressor support with Levophed and vasopressin, received amiodarone due to transient V. tach noted on telemetry monitoring. Patient attained ROSC after 22 minutes of CPR. Blood pressure 96/61 on 2 pressors, blood noted in the ET tube which was suctioned. Patient remains critically ill. Family at bedside, updated multiple times during CPR. Overall 70 minutes of critical care time dedicated to CPR, updating family, coordinating care with ER physician for intubation, interpreting abnormal lab findings and ordering further testing. Coding Level of Care Code Acute Code for Chg Fwd
--- NOTE | 2023-01-27 15:14 | PC.NURSE ---
Patient oygen status continues to be low. Oftentime unable to get a reading, and when we do the wave form is poor. Patient is asymptomatic. Nurse alerted Dr landaverde. REcieved another ordder for ABG to verify PO2 and to give narcan. Patient did not have a response to narcan. Dr landaverde discussed intubation with the patient. Patient was initially said no, then changed her mind agreeing to it after her son is able to come to see her at bedside and he is 30 minutes away. Patient started to become lethargic and short of breath, and then agreed to intubation.
--- NOTE | 2023-01-27 15:19 | PC.NURSE ---
Dr coronel and Dr landaverde at bedside for intubation. Nurse administered succinylcholine and etomidate (see mar). Tube placement by Dr contreras was uneventful. Patient then started to become bradycardic and then went into PEA. ACLS protocol started. See code sheet.
[2023-01-27] MEDS: succinylcholine 20 mg/mL SDV 10mL 100 MG IVP (15:26)
[2023-01-27] MEDS: etomidate 2 mg/mL INJ SDV 10 mL 20 MG IVP (15:26)
--- NOTE | 2023-01-27 15:38 | PC.NURSE ---
ROSC acheived (see code sheet), but patient again become brdycardic and then went into PEA. Daughter genoveva is at bedside and states the the fmaily has decided no further interventions. Time of is 1502. Verified with second nurse Isabel, Dr Wilks at bedside speaking with family.
[2023-01-27 16:16] LABS: Glucose Point of Care 96 mg/dL (70-110)
--- NOTE | 2023-01-27 16:58 | PM.DDS ---
Discharge Providers DDS Date of Admission: 01/25/23 23:07 Date Summary Completed: 01/27/23 Attending Provider at Admission: Joshua Espinoza MD Time of : 15:12 Attending Provider at Discharge: Monie Wilks MD Primary Care Provider: Consuelo Peacock Diagnoses Hospital Diagnoses (1) Acute exacerbation of chronic obstructive airways disease: (2) Scleroderma: (3) Congestive heart failure: Qualifiers: Heart failure chronicity: chronic Heart failure type: unspecified Qualified Code(s): I50.9 - Heart failure, unspecified (4) Elevated lactic acid level: (5) Atrial fibrillation with rapid ventricular response: (6) Diabetes mellitus: (7) Acute and chronic respiratory failure: (8) Interstitial lung disease due to connective tissue disease: (9) JAE on CPAP: (10) Systemic sclerosis with limited cutaneous involvement: (11) Pulmonary hypertension: Reason for Visit Reason for Visit sob Summary Date and Time of Date of : 01/27/23 Time of : 15:12 Summary Summary: Kathy Ordonez is a 67 year old female on baseline 3.5 to 4 L oxygen dependent at home, history of COVID-19 infection, PE, diastolic dysfunction, moderate to severe pulm hypertension, AJE, systemic scleroderma, presenting to the hospital for worsening of shortness of breath. Patient was diagnosed with acute on chronic hypoxic respiratory failure with severe hypoxia, multifactorial related to acute viral infection with human metapneumovirus pneumonitis, severe pulmonary hypertension and possible PE. CTA of the chest was performed which was nondiagnostic for PE due to contrast admixture. Scattered micronodules and groundglass opacities were noted likely due to viral pneumonitis. Echocardiogram showed moderate pulmonary hypertension, RV is dilated and hypokinetic, grossly LV systolic function mildly reduced. Baseline troponin at 29. EKG was with A-fib with RVR. Patient was admitted to the hospital and started on treatment with IV piperacillin/tazobactam due to concern for possibility of superadded bacterial infection on top of viral pneumonitis, started on diuresis with IV Lasix, received presumptive anticoagulation with full dose Lovenox. In spite of these measures her respiratory status continued to worsen. Initially she was placed on BiPAP support, however with maximal BiPAP support at 100% FiO2 her oxygen saturations started to drop down to 30% on the afternoon of 01/27/2023. Patient was intubated for respiratory distress. Shortly after intubation patient went into bradycardia and then developed PEA. CPR was started and continued for 22 minutes. At the end of 22 minutes of CPR a pulse was restored. Blood pressures was 96/71. She was started on pressor support with Levophed and vasopressin. Family was at bedside during CPR and was given multiple updates throughout the day. After sustaining her ROSC for a few minutes, patient developed asystole again. At this point family was at bedside and discussed with them that continuing resuscitative measures by doing another round of CPR would unlikely to result in any meaningful recovery for the patient. Her daughters at bedside were in agreement and it was decided not to pursue any further resuscitative measures. Patient was declared at 3:12 PM on January 27, 2023. Additional Data Confirmation of as documented by pronouncing clinician: no pulse, no respirations, no heart sounds and pupils fixed and dilated Family: at bedside Additional persons at bedside: nursing staff Attending/PCP notified?: I am attending Autopsy requested?: No Advance directives?: No Hospice patient?: No Discharge Plan Discharge Patient Disposition: Condition: Stable Prescriptions: No Action albuterol sulfate [Ventolin HFA] 90 mcg/actuation HFA aerosol inhaler 2 puff INHALATION Q6H PRN (Reason: shortness of breath) Qty: 8.5 3RF Incruse Ellipta 62.5 mcg/actuation blister with device 1 inh INHALATION DAILY Qty: 30 3RF hydrocodone-acetaminophen 10-325 mg tablet 1 - 2 tab PO Q4H MDD 6 tabs PRN (Reason: Pain) citalopram [Celexa] 40 mg tablet 40 mg PO DAILY Dexilant 60 mg capsule,biphase delayed releas 60 mg PO DAILY diclofenac sodium 1 % gel 4 g topical QID Qty: 100 2RF Rx Instructions: apply to affected area as needed hydroxychloroquine 200 mg tablet See Rx Instructions .ROUTE .COMPLEX Qty: 60 3RF Dose Instruction: TAKE ONE TABLET BY MOUTH TWICE DAILY Rx Instructions: TAKE ONE TABLET BY MOUTH TWICE DAILY mycophenolate mofetil [CellCept] 500 mg tablet See Rx Instructions PO BID Qty: 90 3RF Rx Instructions: take 2 tabs in AM and 1 tab in Pm prednisone 5 mg tablet See Rx Instructions .ROUTE .COMPLEX Qty: 90 1RF Dose Instruction: TAKE ONE TABLET BY MOUTH EVERY DAY Rx Instructions: TAKE ONE TABLET BY MOUTH EVERY DAY trazodone 100 mg tablet 200 mg PO BEDTIME ergocalciferol (vitamin D2) 1,250 mcg (50,000 unit) capsule See Rx Instructions .ROUTE .COMPLEX Rx Instructions: 2 CAPS PO EVERY 7 DAYS (ON TUESDAY) ondansetron 4 mg tablet,disintegrating 4 mg PO TID PRN (Reason: Nausea And Vomiting) rosuvastatin 10 mg tablet 10 mg PO BEDTIME furosemide [Lasix] 20 mg tablet 20 mg PO DAILY PRN (Reason: Edema) Rx Instructions: pt states still taking-[facility] last filled 07/28/21 14d/s guaifenesin [Mucinex] 600 mg tablet extended release 12hr 600 mg PO BID potassium chloride 20 mEq tablet extended release 30 meq PO DAILY PRN (Reason: with lasix) Rx Instructions: pt states still taking[facility] last filled 07/28/21 14d/s Uptravi 200 mcg tablet 200 mcg PO BID Rx Instructions: swallow whole; do not crush, chew, open, break/cut or dissolve levothyroxine 137 mcg tablet 137 mcg PO DAILY oxybutynin chloride 15 mg tablet extended release 24hr 15 mg PO DAILY benzonatate 100 mg capsule 200 mg PO Q8H PRN (Reason: Cough) gabapentin 300 mg capsule See Rx Instructions .ROUTE .COMPLEX Rx Instructions: 300 mg orally in the am and 900 mg po qpm amoxicillin-pot clavulanate 875-125 mg tablet 1 tab PO BID magnesium chloride 64 mg magnesium tablet 128 mg PO DAILY vitamin [id number] acid 500-400 mcg Tablet 1 tab PO DAILY Rx Instructions: administer with a meal Referrals: Consuelo Peacock FNP [Primary Care Provider] - WILLIE Attestations Time Spent in /Discharge Care*: greater than 30 min Quality - AMI: AMI present?: No Quality - Stroke: CVA present?: No Quality - VTE: VTE present?: Yes Coding Level of Care Code Acute Code for g Fwd Diagnoses Acute exacerbation of chronic obstructive airways disease J44.1 Scleroderma M34.9 Congestive heart failure I50.9 Heart failure chronicity: chronic Heart failure type: unspecified Elevated lactic acid level R79.89 Atrial fibrillation with rapid ventricular response I48.91 Diabetes mellitus E11.9 Acute and chronic respiratory failure J96.20 Interstitial lung disease due to connective tissue disease J84.89; M35.9 JAE on CPAP G47.33; Z99.89 Systemic sclerosis with limited cutaneous involvement M34.0 Pulmonary hypertension I27.20
--- NOTE | 2023-01-27 18:37 | PC.NURSE ---
Fentanyl spiked and started infusion just as patient went into cardiac arrest. Fentanyl stopped. full bag wasted. WItnessed by everardo kuo RN.
--- NOTE | 2023-01-27 19:02 | PC.NURSE ---
Late note. [facility] was called and Anam advised to take patient to [facility] [place]. Family didn't depart bedside until 183. Patient was then cleaned and prepped to go to the [facility] [place]. 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
--- NOTE | 2023-01-27 19:30 | PC.NURSE ---
Code Blue; 1400 Intubation. 24@ lip with 8.0 ETT 1408 Bradycardia then to PEA. CPR initiated, and Atropine IVP 1410 Pulse Check-PEA. EPI IVP. CPR 1412 Pulse Check-PEA. CPR 1413 EPI IVP 1414 Pulse Check-PEA. CPR 1415 BG checked-96 1416 Pulse Check-PEA. CPR. EPI IVP 1418 Pulse Check-PEA. CPR 1419 EPI IVP 1420 Pulse Check-VTach. Shock delivered. PEA. CPR 1422 Pulse Check-EPI IVP. Amio 150 IVP 1424 Pulse Check-PEA. CPR 1425 EPI IVP. 1 amp Calcium Gluconate IVP. 1426 Pulse Check-PEA. CPR 1428 Pulse Check-PEA. CPR. EPI IVP 1430 Pulse Check-SB/SR. ROSC.
--- NOTE | 2023-01-27 20:54 | PC.NURSE ---
Kaye from [facility] called and released body to home, family declined donation. Notified housecalls nurse.
--- NOTE | 2023-01-28 17:57 | ED_ITS ---
HPI - SOB/Dyspnea General: Chief Complaint: Shortness of Breath/Dyspnea Stated Complaint: sob Time Seen by Provider: 01/25/23 21:11 History of Present Illness: HPI Narrative: Called to the ICU emergently for intubation patient in respiratory distress. [facility] ED PFSH: Medical History Chronic diarrhea COPD (chronic obstructive pulmonary disease) Diabetes mellitus Fibromyalgia GERD (gastroesophageal reflux disease) Hypothyroidism Pulmonary hypertension Scleroderma Systemic sclerosis with limited cutaneous involvement Surgical History H/O section H/O esophagogastroduodenoscopy (~06/17/20) With balloon dilation History of hysterectomy Status post colonoscopy Family History Other Arthritis Diabetes Heart disease Denies family history of Rheumatoid arthritis Lupus Anesthesia complication Bleeding disorder Social History Smoking and tobacco status: never smoked Quit status (tobacco): has quit using tobacco Year quit tobacco: 2019 Former quit date comment: Hx of 2PPD x 10 Years Second hand smoke exposure: No Smoking risk assessment/counseling performed?: No Alcohol intake: never Counseling given: No Counseling given: No Lives independently: Yes Household members: friend(s) Marital status: / Current occupational status: disabled Pets and animals: Yes Current gender identity: Female Procedures Intubation Time out performed: Yes sedative: Etomidate Mg Given: 20 Mg Given: 100 Laryngoscope: fiber optic video scope Assist Device Used: fiber optic device ET Tube Size: 8.5 ET Tube Uncuffed: Yes Tube Secured Depth (cm): 21 Tube Placement Confirmation: visualized tube passing through cords, equal breath sounds bilaterally, no breath sounds over epigastrium and confirmation by capnometry Patient Tolerated Procedure: well Intubation Complications: none Course Vital Signs: Vital signs: Vital Signs Temperature 97.2 F L 01/27/23 08:00 Pulse Rate 0 L 01/27/23 15:30 Respiratory Rate 20 H 01/27/23 15:30 Blood Pressure 84/40 01/27/23 15:00 Pulse Oximetry 75 L 01/27/23 14:30 Oxygen Delivery In thod 01/27/23 08:00 Oxygen Flow Rate 60 01/27/23 08:00 Fraction of Inspir ed Oxygen 100 01/27/23 14:37 MDM - SOB/Dyspnea Medical Decision Making Intubated care turned over to Dr. Wilks who is attending. Lab Data 01/26/23 03:26 01/27/23 03:42 Labs/Radiology: Radiology Impressions Chest CTA 01/26/23 13:46 IMPRESSION: 1. Evaluation for pulmonary embolism is nondiagnostic given admixture artifact on exam. 2. Scattered clustered micro nodules and ground-glass opacities noted within the posterior lung suggestive of small airway infectious or inflammatory process or aspiration given the fluid-filled esophagus. Chest X-Ray 01/27/23 13:58 IMPRESSION: Endotracheal tube position as above. Nasogastric tube position as above. No acute chest abnormality. Laboratory Results WBC 6.0 10^3/uL (4.0-10.0) 01/25/23 21:25 RBC 4.86 10^6/uL (4.1-5.3) 01/25/23 21:25 Hgb 12.6 g/dL (11.5-15.3) 01/25/23 21:25 Hct 42.4 % (37.0-47.0) 01/25/23 21: MCV 87.2 fl (81-99) 01/25/23 21:25 MCH 25.9 pg (28.0-34.0) L 01/25/23 21: MCHC 29.7 g/dL (30.0-36.0) L 01/25/23 21:25 RDW 17.5 % (12.1-15.1) H 01/25/23 21:25 Plt Count 143 10^3/cmm (130-400) 01/25/23 21:25 MPV 9.5 fL (7.4-10.4) 01/25/23 21:25 Neut % (Auto) 77.2 % 01/25/23 21: Lymph % (Auto) 12.7 % 01/25/23 21:25 [place] % (Auto) 6.5 % 01/25/23 21:25 Eos % (Auto) 2.8 % 01/25/23 21: Baso % (Auto) 0.3 % 01/25/23 21: Neut # (Auto) 4.60 10^3/uL (1.8-7.7) 01/25/23 21:25 Lymph # (Auto) 0.8 10^3/uL (0.8-4.8) 01/25/23 21:25 [place] # (Auto) 0.4 10^3/uL (0.2-0.9) 01/25/23 21:25 Eos # (Auto) 0.2 10^3/uL (0.0-0.8) 01/25/23 21:25 Baso # (Auto) 0.0 10^3/uL (0.0-0.1) 01/25/23 21:25 Nucleated RBC % (auto) 0.5 % 01/25/23 21: Nucleated RBCs # 0.0 /100WBC 01/25/23 21:25 D-Dimer 0.90 ug/mIFEU (0-0.59) H 01/25/23 21:25 Specimen Type Arterial 01/25/23 21:50 Sample Site Radial, right 01/25/23 21:50 ABG pH 7.39 (7.35-7.45) 01/25/23 21:50 ABG pCO2 40.4 mmHg (35-45) 01/25/23 21:50 ABG pO2 34.3 mmHg (80.0-100.0) L* 01/25/23 21:50 ABG HCO3 24.2 mmol/L (22-26) 01/25/23 21:50 ABG Base Excess -0.8 mmol/L (-2.0-2.0) 01/25/23 21:50 Evangelist Test Pos 01/25/23 21:50 Hematocrit 40.5 % (37-47) 01/25/23 21:50 Hgb O2 Saturation 54.9 % (95-100) L 01/25/23 21:50 Carboxyhemoglobin 1.3 %THgb (0.4-20.1) 01/25/23 21:50 Methemoglobin 0.8 % (0.4-1.5) 01/25/23 21:50 Total Hemoglobin 13.2 g/dL (12-16) 01/25/23 21:50 O2 Delivery Device Nc 01/25/23 21:50 Bilingual [employer] ID [email or web address] 01/25/23 21:50 Sodium 135 mmol/L (136-145) L 01/25/23 21:25 Potassium 4.1 mmol/L (3.5-5.1) 01/25/23 21:25 Chloride 101 mmol/L (98-107) 01/25/23 21:25 Carbon Dioxide 21 mmol/L (22-29) L 01/25/23 21:25 Anion Gap 17.1 (5-19) 01/25/23 21:25 BUN 7 mg/dL (8-23) L 01/25/23 21:25 Creatinine 0.6 mg/dL (0.5-0.9) 01/25/23 21:25 GFR Calculation 100.3 mL/min (90-130) 01/25/23 21:25 Glucose 115 mg/dL (65-115) 01/25/23 21:25 Calculated Osmolality 279 mOsm/kg (285-295) L 01/25/23 21:25 Lactic Acid 3.7 mmol/L (0.5-2.2) H 01/25/23 21:25 Calcium 8.1 mg/dL (8.5-10.5) L 01/25/23 21:25 Magnesium 1.8 mg/dL (1.7-2.3) 01/25/23 21:25 Total Bilirubin 0.6 mg/dL (0.15-1.2) 01/25/23 21:25 AST 17 U/L (0-32) 01/25/23 21:25 ALT 8 U/L (0-33) 01/25/23 21:25 Alkaline Phosphatase 105 U/L (35-105) 01/25/23 21:25 Troponin T Gen 5 ng/L 29 ng/L (0-10) H 01/25/23 21:25 NT-Pro-B Natriuret Pep 23936 pg/mL (0-125) H 01/25/23 21:25 Total Protein 6.1 g/dL (6.6-8.7) L 01/25/23 21:25 Albumin 3.2 g/dL (3.5-5.2) L 01/25/23 21:25 Globulin 2.9 g/dL (1.3-4.6) 01/25/23 21:25 Procalcitonin 0.05 ng/mL (0-0.5) 01/25/23 21:25 Nasal Influ A H1 2009 PCR Not detected (NOT DETECT) 01/25/23 21:34 Adenovirus (PCR) Not detected (NOT DETECT) 01/25/23 21:34 C. pneumoniae DNA (PCR) Not detected (NOT DETECT) 01/25/23 21:34 Coronavirus 229E (PCR) Not detected (NOT DETECT) 01/25/23 21:34 Human Metapneumovir PCR Detected (NOT DETECT) A 01/25/23 21:34 Influenza A (H1) PCR Not detected (NOT DETECT) 01/25/23 21:34 Influenza A (H3) PCR Not detected (NOT DETECT) 01/25/23 21:34 Influenza Type A (PCR) Not detected (NOT DETECT) 01/25/23 21:34 Influenza Type B (PCR) Not detected (NOT DETECT) 01/25/23 21:34 M. pneumoniae (PCR) Not detected (NOT DETECT) 01/25/23 21:34 Parainfluenza 1 (PCR) Not detected (NOT DETECT) 01/25/23 21:34 Parainfluenza 2 (PCR) Not detected (NOT DETECT) 01/25/23 21:34 Parainfluenza 3 (PCR) Not detected (NOT DETECT) 01/25/23 21:34 Parainfluenza 4 (PCR) Not detected (NOT DETECT) 01/25/23 21:34 RSV Type A (PCR) Not detected (NOT DETECT) 01/25/23 21:34 RSV Type B (PCR) Not detected (NOT DETECT) 01/25/23 21:34 Entero/Rhino (PCR) Not detected (NOT DETECT) 01/25/23 21:34 SARS-CoV-2 (PCR) Not detected (NOT DETECT) 01/25/23 21:34 Discharge Plan Discharge Patient Disposition: Admitted As Inpatient Admit Provider: Joshua Espinoza Clinical Impression: Acute exacerbation of chronic obstructive airways disease, Congestive heart failure Condition: Stable Coding Level of Care Code ED Industrial Hygienist for Yuly Persaud
== END 2023-01-27 19:50 | disposition expired | DRG 189 ==
LOC: ER 23:07 → ICU 23:20
PROVIDERS: Admitting Provider Internal Medicine; Emergency Provider Emergency Medicine; PCP Nurse Practitioner Family; Visit Provider Student in an Organized Health Care Education/Training Program
DX: J96.21 Acute and chronic respiratory failure with hypoxia (principal); I50.33 Acute on chronic diastolic (congestive) heart failure; J12.3 Human metapneumovirus pneumonia; J44.1 Chronic obstructive pulmonary disease with (acute) exacerbation; J44.0 Chronic obstructive pulmonary disease with (acute) lower respiratory infection; M34.9 Systemic sclerosis, unspecified; Z99.81 Dependence on supplemental oxygen; Z86.16 Personal history of COVID-19; Z86.711 Personal history of pulmonary embolism; I27.20 Pulmonary hypertension, unspecified; G47.33 Obstructive sleep apnea (adult) (pediatric); I48.91 Unspecified atrial fibrillation; E03.9 Hypothyroidism, unspecified; K21.9 Gastro-esophageal reflux disease without esophagitis; M79.7 Fibromyalgia; E11.9 Type 2 diabetes mellitus without complications; Z87.891 Personal history of nicotine dependence; I46.9 Cardiac arrest, cause unspecified
CPT/HCPCS: 31500; 36415; 36416; 36600; 51702; 71045; 71275; 80048; 80051; 80053; 81003; 82330; 82803; 82805; 82962; 83605; 83735; 83880; 84145; 84484; 85025; 85378; 86140; 86403; 87040; 87486; 87581; 87631; 87633; 87641; 93005; 94002; 94640; 94660; 94664; 94799; 96361; 96372; 96374; 96376; 99285; C8924; J0282; J0330; J0461; J1650; J1940; J2310; J2405; J2543; J2704; J2920; J3010; J3490; J7030; J7060; J7626; J7644; P9045; Q9956; Q9967